=== PATIENT | female | born 1935 | race Caucasian/White ===

== ENCOUNTER 2018-01-26 23:54 | Emergency (ER) | payer OTHER ==
--- OUTSIDE RECORDS SUMMARY | 2018-01-26 23:56 | XMS REPORT | Clinical Summary ---
:1935 Author Organization [facility] [employer] Address [address] [place] [address] Care Team Providers Name Role Phone Landon Corbin MD Primary Care Provider Allergies Active Allergy Reactions Severity Noted Date Comments Adhesive Tape-Silicones 12/18/2016 Buprenorphine 12/18/2016 Codeine 12/18/2016 Meperidine 12/18/2016 Triamcinolone Acetonide 12/18/2016 Levofloxacin 12/18/2016 Penicillins 12/18/2016 Oxycodone-Aspirin 12/18/2016 Wasp Venom 12/18/2016 Medications Medication Sig Dispensed Refills Start Date End Date Status LYRICA 75 mg capsule every 12 0 11/16/2016 Active (twelve) hours as needed. pramipexole (MIRAPEX) 0.25 mg 0 11/16/2016 Active 0.25 MG tablet nightly. losartan (COZAAR) 50 MG 50 mg every 0 12/16/2016 Active tablet morning. primidone (MYSOLINE) Take 250 mg by 0 10/17/2016 Active 250 MG tablet mouth 2 (two) times a day. amitriptyline (ELAVIL) nightly. 0 11/16/2016 Active 50 MG tablet furosemide (LASIX) 40 40 mg every 0 10/04/2016 Active mg tablet morning. topiramate (TOPAMAX) nightly. 0 10/18/2016 Active 100 MG tablet dexlansoprazole Take 60 mg by 0 Active (DEXILANT) 60 mg mouth every capsule morning. fluticasone (FLONASE) 2 sprays by 0 11/16/2016 Active 50 mcg/actuation nasal Each Nare spray route daily. hyoscyamine sulfate Take 1 tablet 0 Active 0.125 mg by mouth 2 tablet,disintegrating (two) times a day. cholecalciferol, Take 2,000 0 Active vitamin D3, (VITAMIN Units by mouth D3) 2,000 unit capsule daily. capsule CALCIUM CARBONATE Take 600 mg by 0 Active (CALCIUM 600 ORAL) mouth daily. ginkgo biloba leaf Take 120 mg by 0 Active extract 120 mg capsule mouth. rizatriptan LAND SALES AGENT Take 10 mg by 0 Active (MAXALT-LAND SALES AGENT) 10 MG mouth once as disintegrating tablet needed for migraine. May repeat in 2 hours if unresolved. Do not exceed 30 mg in 24 hours. clopidogrel (PLAVIX) 75 Take 1 tablet 30 tablet 0 12/30/2016 01/29/2017 mg tablet (75 mg total) by mouth daily for 30 days. atorvastatin (LIPITOR) Take 1 tablet 30 tablet 0 12/30/2016 01/29/2017 40 MG tablet (40 mg total) by mouth daily for 30 days. Active Problems Problem Noted Date Carotid stenosis, left 12/28/2016 Family History Medical History Relation Name Comments Cancer Father Heart disease Father Lung disease Father Cancer Mother Lung disease Mother Cancer Son Lung disease Son Relation Name Status Comments Father Mother Son Social History Tobacco Use Types Packs/Day Years Used Date Former Smoker 0 Quit: 1991 Smokeless Tobacco: Never Used Comments: 2PPd until 1991 Alcohol Use Drinks/Week oz/Week Comments No Sex Assigned at Date Recorded Not on file Job Start Date Occupation Industry Not on file Not on file Not on file Travel History Travel Start Travel End No recent travel history available. 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 Device Shelf Model / Identifier Expiration Serial / Lot Date Clip Ligtng Weck Hemoclip Plus W/ Tape Ti Sm Strngpnt - [id number] Medical N/A : WECK CLOSURE [id number] / Implanted: 12/28/2016 (Quantity not on file) Clips for N/A SYSTEMS / Internal Use Clip Ligtng Weck Hemoclip Plus W/ Tape Ti Med - [id number] Medical N/A: TELEFLEX [id number] / Implanted: 12/28/2016 (Quantity not on file) Clips for N/A MEDICAL / Internal Use Kit Shunt Crtd Artery Rdopq Line 6in Strl [place] - [id number] Surgical N/A: COVIDIEN ALISSON 06/09/2019 [id number] / Implanted: 12/28/2016 (Quantity not on file) Implants; N/A HEALTHCARE / Expanders; [id number] Extenders; Surgical Wires Patch Vasclr Perph 0.8x8cm Vascu-Guard - [id number] Vascular N/A: GARCIA 06/18/2021 [id number] / Implanted: 12/28/2016 (Quantity not on file) Graft N/A BIOSCIENCE / [id number] Results Not on fileafter 01/25/2017 Insurance Payer Benefit Plan / Group Subscriber ID Type Phone Address [facility] xxxxxxxxx HMO (Home) [place] [address] Advance Directives Patient has advance care planning documents on file. For more information, please contact:[place] [address]
[2018-01-27] MEDS ORDERED: HYDROMORPHONE HCL 1 MG/ML INJ ONE (00:54)
[2018-01-27] MEDS ORDERED: ONDANSETRON 4 MG/2 ML VIAL ONE (00:54)
[2018-01-27 01:19] LABS: Absolute Lymphocytes (CBC) 0.9 K/uL (0.7-4.9); Absolute Monocytes 1.5 K/uL (0.1-1.3); Basophils % 0.5 % (0-1.3); Hematocrit 33.9 % (36.0-45.0); Lymphocytes % 12.3 % (15.3-44.8); MCH 30.2 pg (27.0-35.0); MPV 9.1 fL (7.6-11.3); Monocytes % 19.6 % (3.3-12.3); RBC Red Blood Cell Count 3.85 M/uL (3.86-4.86)
[2018-01-27 01:27] LABS: Protime INR 0.92
[2018-01-27 01:40] LABS: ALT/SGPT 23 U/L (12-78); AST/SGOT 32 U/L (15-37); Albumin 3.5 g/dL (3.4-5.0); Alkaline Phosphatase 94 U/L (45-117); BUN Blood Urea Nitrogen 27 mg/dL (7-18); Bicarbonate 27 mmol/L (21-32); Bilirubin Direct < 0.1 mg/dL (0-0.2); Bilirubin Total 0.3 mg/dL (0.2-1.0); Glucose Level 122 mg/dL (74-106); Lipase 167 U/L (73-393); Magnesium 2.5 mg/dL (1.8-2.4); NT PRO-BNP 70 pg/mL (<450); Potassium 3.3 mmol/L (3.5-5.1); Protein, Total 6.8 g/dL (6.4-8.2); Sodium Level 136 mmol/L (136-145); Troponin (Emerg Dept Use Only) < 0.02 ng/mL (0.0-0.045)
[2018-01-27] MEDS ORDERED: NA CHLORIDE 0.9% 1,000 ML ONE (02:08)
--- NOTE | 2018-01-27 02:32 | ER ---
Nurse's Notes [facility] Name: Mechelle Chapa Age: 82 yrs Sex: Female : 1935 Arrival Date: 01/26/2018 Time: 23:55 Bed 16 Private MD: Diagnosis: Fall due to bumping against object;Displaced fracture of lateral malleolus of left fibula;Obesity, unspecified Presentation: 01/27 00:06 Presenting complaint: EMS states: patient had a fall about 1 hour ago from standing kr2 position, witness by her , swelling and pain to both ankles. Denies hitting head or loss of consciousness. Transition of care: patient was not received from another setting of care. Onset of symptoms was January 26, 2018 at 23:00. Risk Assessment: Do you want to hurt yourself or someone else? Patient reports no desire to harm self or others. Initial Sepsis Screen: Does the patient meet any 2 criteria? No. Patient's initial sepsis screen is negative. Does the patient have a suspected source of infection? No. Patient's initial sepsis screen is negative. Care prior to arrival: Splint applied. 00:06 Method Of Arrival: EMS: [facility] kr2 00:06 Acuity: BA 3 kr2 Triage Assessment: 00:09 General: Appears in no apparent distress. uncomfortable, well groomed, well developed, kr2 well nourished, Behavior is calm, cooperative, appropriate for age. Pain: Complains of pain in left and right ankle Pain does not radiate. Pain currently is 10 out of 10 on a pain scale. Quality of pain is described as aching, tender, Pain began 1 hour ago. Is continuous, Alleviated by rest, Aggravated by weight bearing. 00:11 Neuro: Level of Consciousness is awake, alert, obeys commands, Oriented to person, kr2 place, time, situation, Appropriate for age. Cardiovascular: Capillary refill < 3 seconds in bilateral fingers Patient's skin is warm and dry. Rhythm is regular. Respiratory: Airway is patent Respiratory effort is even, unlabored, Respiratory pattern is regular, symmetrical. Derm: Skin is fragile, Skin is pink, warm \T\ dry. Bruising that is dark purple. Musculoskeletal: Circulation, motion, and sensation intact. Swelling present in left and right ankle. - Immunization history:: Adult Immunizations up to date. - Social history:: Smoking status: Patient/guardian denies using tobacco. - Ebola Screening: : No symptoms or risks identified at this time. - Family history:: not pertinent. Screenin:15 Abuse screen: Denies threats or abuse. Denies injuries from another. Nutritional kr2 screening: No deficits noted. Tuberculosis screening: No symptoms or risk factors identified. Fall Risk Fall in past 12 months (25 points). Assessment: 02:01 General: Appears in no apparent distress. uncomfortable, Behavior is calm, cooperative. mg2 Pain: Complains of pain in anterior aspect of right ankle and right ankle and left leg and right leg and anterior aspect of left ankle and left lateral ankle Pain does not radiate. Pain currently is 5 out of 10 on a pain scale. Quality of pain is described as aching, Pain began suddenly, 2 hours ago. Is intermittent, Alleviated by medications, Aggravated by increased activity, repositioning, weight bearing. Neuro: Level of Consciousness is awake, alert, obeys commands, Oriented to person, place, time, situation. Cardiovascular: Capillary refill < 3 seconds Patient's skin is warm and dry. Respiratory: Airway is patent Respiratory effort is even, unlabored, Respiratory pattern is regular, symmetrical. GI: No signs and/or symptoms were reported involving the gastrointestinal system. : No signs and/or symptoms were reported regarding the genitourinary system. EENT: No signs and/or symptoms were reported regarding the EENT system. Derm: Skin is intact, is healthy with good turgor, Skin is pink, warm \T\ dry. normal. Musculoskeletal: Circulation, motion, and sensation intact. Capillary refill < 3 seconds, Swelling present in anterior aspect of right ankle and right ankle and anterior aspect of left ankle and left lateral ankle. Injury Description: Bruise sustained to left knee. 03:00 Reassessment: Patient appears in no apparent distress at this time. Patient and/or jb4 family updated on plan of care and expected duration. Pain level reassessed. Patient is alert, oriented x 3, equal unlabored respirations, skin warm/dry/pink. 03:15 Reassessment: Waiting for urine sample, and for to arrive with a smaller car. jb4 04:00 Reassessment: Patient appears in no apparent distress at this time. Patient and/or jb4 family updated on plan of care and expected duration. Pain level reassessed. Patient is alert, oriented x 3, equal unlabored respirations, skin warm/dry/pink. Vital Signs: 00:10 BP 140 / 52; Pulse 94; Resp 18; Temp 98.7; Pulse Ox 96% on R/A; Weight 77.11 kg; Height kr2 5 ft. 5 in. (165.10 cm); Pain 10/10; 00:42 BP 125 / 60; Pulse 85; Resp 18; Pulse Ox 100% ; Pain 8/10; mg2 03:15 BP 130 / 50; Pulse 97; Resp 18; Pulse Ox 97% on R/A; jb4 00:10 Body Mass Index 28.29 (77.11 kg, 165.10 cm) kr2 ED Course: 01/26 23:55 Patient arrived in ED. al2 23:57 Stefano Ward MD is Attending Physician. she 01/27 00:06 Harmony Dey, RN is Primary Nurse. kr2 00:09 Triage completed. kr2 00:15 Arm band placed on right wrist. kr2 00:16 Patient has correct armband on for positive identification. Placed in gown. Bed in low kr2 position. Call light in reach. Side rails up X2. Adult w/ patient. Pulse ox on. NIBP on. Door closed. Warm blanket given. Pillow given. Head of bed elevated. 02:03 No provider procedures requiring assistance completed. Inserted saline lock: 22 gauge mg2 in left forearm, using aseptic technique. Blood collected. 02:12 X-ray completed. Patient tolerated procedure well. kp1 02:20 XRAY Chest (1 view) In Process Unspecified. EDMS 02:20 Tib Fib Left XRAY In Process Unspecified. EDMS 02:20 Tib Fib Right XRAY In Process Unspecified. EDMS 02:20 Ankle Right 3 View XRAY In Process Unspecified. EDMS 02:20 Ankle Left 3 View XRAY In Process Unspecified. EDMS 02:33 Momo Chowdary MD is Referral Physician. she 02:48 Orthoglass splint: Posterior short lleg splint applied on left leg. oe 04:00 IV discontinued, intact, bleeding controlled. jb4 Administered Medications: 01:19 CANCELLED (Duplicate Order): Zofran 4 mg IVP once; over 2 minutes mg2 01:20 CANCELLED (Duplicate Order): Dilaudid 0.5 mg IVP once mg2 01:21 Drug: Dilaudid 0.5 mg Route: IVP; Site: left forearm; mg2 02:20 Follow up: Response: No adverse reaction; Pain is decreased mg2 01:21 Drug: Zofran 4 mg Route: IVP; Site: left forearm; mg2 02:18 Follow up: Response: No adverse reaction; Pain is decreased mg2 02:22 Drug: NS 0.9% 500 ml Route: IV; Rate: bolus; Site: left forearm; mg2 02:48 Follow up: Response: No adverse reaction; IV Status: Completed infusion jb4 02:48 Drug: NS 0.9% 1000 ml Route: IV; Rate: 125 ml/hr; Site: left hand; jb4 03:50 Follow up: Response: No adverse reaction; IV Status: Completed infusion jb4 Outcome: 02:31 Discharge ordered by . she 04:07 Discharged to home via wheelchair, with family. jbLeticia 04:07 Condition: stable 04:07 Discharge instructions given to patient, family, Instructed on discharge instructions, follow up and referral plans. medication usage, Demonstrated understanding of instructions, follow-up care, medications, Prescriptions given X 1. 04:10 Patient left the ED. jb4 Signatures: Dispatcher [employer] EDMS Stefano Ward MD MD cha Bryson, James, RN RN jb4 Gabriel Matthews Kathy kp1 Harmony Dey RN RN kr2 Lilliana Bang Michele, RN RN mg2 Corrections: (The following items were deleted from the chart) 04:08 03:15 IV discontinued, intact, bleeding controlled, jb4 jb4
--- NOTE | 2018-01-27 02:32 | EDPHYS ---
Physician Documentation [facility] Name: Mechelle Chapa Age: 82 yrs Sex: Female : 1935 Arrival Date: 01/26/2018 Time: 23:55 Bed 16 Private MD: ED Physician Stefano Ward HPI: 01/27 00:48 This 82 yrs old Female presents to ER via EMS with complaints of Fall Injury. she 00:48 Details of fall: The patient fell from a height, off furniture, approximately 2 feet. she Onset: The symptoms/episode began/occurred just prior to arrival. Associated injuries: The patient sustained right leg, left lateral ankle and anterior aspect of left ankle, decreased range of motion, painful injury. - Immunization history:: Adult Immunizations up to date. - Social history:: Smoking status: Patient/guardian denies using tobacco. - Ebola Screening: : No symptoms or risks identified at this time. - Family history:: not pertinent. ROS: 00:48 Constitutional: Negative for fever, chills, and weight loss, Eyes: Negative for injury, she pain, redness, and discharge, ENT: Negative for injury, pain, and discharge, Neck: Negative for injury, pain, and swelling, Cardiovascular: Negative for chest pain, palpitations, and edema, Respiratory: Negative for shortness of breath, cough, wheezing, and pleuritic chest pain, Abdomen/GI: Negative for abdominal pain, nausea, vomiting, diarrhea, and constipation, Back: Negative for injury and pain, : Negative for injury, bleeding, discharge, and swelling, Skin: Negative for injury, rash, and discoloration, Neuro: Negative for headache, weakness, numbness, tingling, and seizure, Psych: Negative for depression, anxiety, suicide ideation, homicidal ideation, and hallucinations, Allergy/Immunology: Negative for hives, rash, and allergies, Endocrine: Negative for neck swelling, polydipsia, polyuria, polyphagia, and marked weight changes, Hematologic/Lymphatic: Negative for swollen nodes, abnormal bleeding, and unusual bruising. 00:48 MS/extremity: Positive for decreased range of motion, deformity, pain, warmth, of the right ankle, anterior aspect of right ankle and left leg. Exam: 00:48 Constitutional: This is a well developed, well nourished patient who is awake, alert, she and in no acute distress. Head/Face: Normocephalic, atraumatic. Eyes: Pupils equal round and reactive to light, extra-ocular motions intact. Lids and lashes normal. Conjunctiva and sclera are non-icteric and not injected. Cornea within normal limits. Periorbital areas with no swelling, redness, or edema. ENT: Nares patent. No nasal discharge, no septal abnormalities noted. Tympanic membranes are normal and external auditory canals are clear. Oropharynx with no redness, swelling, or masses, exudates, or evidence of obstruction, uvula midline. Mucous membranes moist. Neck: Trachea midline, no thyromegaly or masses palpated, and no cervical lymphadenopathy. Supple, full range of motion without nuchal rigidity, or vertebral point tenderness. No Meningismus. Chest/axilla: Normal chest wall appearance and motion. Nontender with no deformity. No lesions are appreciated. Cardiovascular: Regular rate and rhythm with a normal S1 and S2. No gallops, murmurs, or rubs. Normal PMI, no JVD. No pulse deficits. Respiratory: Lungs have equal breath sounds bilaterally, clear to auscultation and percussion. No rales, rhonchi or wheezes noted. No increased work of breathing, no retractions or nasal flaring. Abdomen/GI: Soft, non-tender, with normal bowel sounds. No distension or tympany. No guarding or rebound. No evidence of tenderness throughout. Back: No spinal tenderness. No costovertebral tenderness. Full range of motion. Female : Normal external genitalia. Skin: Warm, dry with normal turgor. Normal color with no rashes, no lesions, and no evidence of cellulitis. Neuro: Awake and alert, GCS 15, oriented to person, place, time, and situation. Cranial nerves II-XII grossly intact. Motor strength 5/5 in all extremities. Sensory grossly intact. Cerebellar exam normal. Normal gait. Psych: Awake, alert, with orientation to person, place and time. Behavior, mood, and affect are within normal limits. 00:48 Musculoskeletal/extremity: ROM: limited active range of motion, limited passive range of motion, Circulation is intact in all extremities. Sensation intact. Compartment Syndrome exam of affected extremity: is normal. DVT Exam: negative Homans' sign noted on exam, no appreciated bluish discoloration, no erythema, no increased warmth, pain, swelling, tenderness. Vital Signs: 00:10 BP 140 / 52; Pulse 94; Resp 18; Temp 98.7; Pulse Ox 96% on R/A; Weight 77.11 kg; Height kr2 5 ft. 5 in. (165.10 cm); Pain 10/10; 00:42 BP 125 / 60; Pulse 85; Resp 18; Pulse Ox 100% ; Pain 8/10; mg2 03:15 BP 130 / 50; Pulse 97; Resp 18; Pulse Ox 97% on R/A; jb4 00:10 Body Mass Index 28.29 (77.11 kg, 165.10 cm) kr2 MDM: 01/26 23:57 Patient medically screened. [facility] 01/27 03:48 Data reviewed: vital signs, nurses notes, lab test result(s), EKG, radiologic studies, hse plain films. 01/27 00:47 Order name: Basic Metabolic Panel; Complete Time: 02:27 [facility] 01/27 00:47 Order name: CBC with Diff; Complete Time: 02:27 [facility] 01/27 00:47 Order name: LFT's; Complete Time: 02:27 [facility] 01/27 00:47 Order name: Magnesium; Complete Time: 02:27 [facility] 01/27 00:47 Order name: NT PRO-BNP; Complete Time: 02:27 [facility] 01/27 00:47 Order name: PT-INR; Complete Time: 02:27 [facility] 01/27 00:47 Order name: Troponin (emerg Dept Use Only); Complete Time: 02:27 [facility] 01/27 00:46 Order name: EKG; Complete Time: 00:47 [facility] 01/27 00:47 Order name: XRAY Chest (1 view) [facility] 01/27 00:47 Order name: Tib Fib Left XRAY [facility] 01/27 00:47 Order name: Tib Fib Right XRAY [facility] 01/27 00:47 Order name: Ankle Right 3 View XRAY [facility] 01/27 00:47 Order name: Ankle Left 3 View XRAY [facility] 01/27 00:47 Order name: Urine Culture [facility] 01/27 00:47 Order name: Lipase; Complete Time: 02:27 [facility] 01/27 03:56 Order name: Urine Dipstick--Ancillary (enter results) [facility] 01/27 00:47 Order name: Cardiac monitoring; Complete Time: 00:52 [facility] 01/27 00:47 Order name: EKG - Nurse/Tech; Complete Time: 01:20 [facility] 01/27 00:47 Order name: IV Saline Lock; Complete Time: 00:52 [facility] 01/27 00:47 Order name: Labs collected and sent; Complete Time: 00:52 [facility] 01/27 00:47 Order name: O2 Per Protocol; Complete Time: 00:52 [facility] 01/27 00:47 Order name: O2 Sat Monitoring; Complete Time: 00:52 [facility] 01/27 00:47 Order name: Urine Dipstick-Ancillary (obtain specimen); Complete Time: 03:52 [facility] 01/27 02:25 Order name: Splint - Ankle: Posterior: left; Complete Time: 02:44 [facility] 01/27 03:48 Order name: PO challenge: juice; Complete Time: 04:04 [facility] Administered Medications: 01:19 CANCELLED (Duplicate Order): Zofran 4 mg IVP once; over 2 minutes mg2 01:20 CANCELLED (Duplicate Order): Dilaudid 0.5 mg IVP once mg2 01:21 Drug: Dilaudid 0.5 mg Route: IVP; Site: left forearm; mg2 02:20 Follow up: Response: No adverse reaction; Pain is decreased mg2 01:21 Drug: Zofran 4 mg Route: IVP; Site: left forearm; mg2 02:18 Follow up: Response: No adverse reaction; Pain is decreased mg2 02:22 Drug: NS 0.9% 500 ml Route: IV; Rate: bolus; Site: left forearm; mg2 02:48 Follow up: Response: No adverse reaction; IV Status: Completed infusion jb4 02:48 Drug: NS 0.9% 1000 ml Route: IV; Rate: 125 ml/hr; Site: left hand; jb4 03:50 Follow up: Response: No adverse reaction; IV Status: Completed infusion jb4 Disposition: 01/27/18 02:31 Discharged to Home. Impression: Fall due to bumping against object, Displaced fracture of lateral malleolus of left fibula, Obesity, unspecified. - Condition is Stable. - Discharge Instructions: Fibular Ankle Fracture Treated With or Without Immobilization, Adult, Undisplaced Fibular Ankle Fracture Treated With Immobilization, Adult, Fall Prevention in the Home, Obesity, Adult, Obesity, Adult, [id number]. - Prescriptions for Tylenol 325 mg Oral Tablet - take 2 tablet by ORAL route every 6 hours as needed; 1 bottle. - Medication Reconciliation Form, Thank You Letter, Antibiotic Education, Prescription Opioid Use form. - Follow up: Private Physician; When: 2 - 3 days; Reason: Recheck today's complaints, Continuance of care, Re-evaluation by your physician. Follow up: Momo Chowdary MD; When: 2 - 3 days; Reason: Recheck today's complaints, Re-evaluation by your physician. - Problem is new. - Symptoms have improved. Signatures: Dispatcher [employer] EDLA Stefano Ward MD MD cha Bryson, James, RN RN jb4 Harmony Dey, RN RN kr2 Refugio Concepcion RN RN mg2 Corrections: (The following items were deleted from the chart) 01:19 00:46 Zofran 4 mg IVP once; over 2 minutes ordered. mg2 mg2 01:20 00:46 Dilaudid 0.5 mg IVP once ordered. mg2 mg2 00:47 CBC+H.LAB.BRZ ordered. EDLA EDLA 00:47 PROTIME (+INR)+COAG.LAB.BRZ ordered. [facility] EDLA : 00:47 BASIC METABOLIC PANEL+C.LAB.BRZ ordered. [facility] EDLA : 00:47 HEPATIC FUNCTION+C.LAB.BRZ ordered. [facility] EDLA : 00:47 MAGNESIUM+C.LAB.BRZ ordered. EDLA EDLA : 00:47 PROBNP+C.LAB.BRZ ordered. [facility] EDLA 00:47 TROPONIN (EMERG DEPT USE ONLY)+C.LAB.BRZ ordered. [facility] EDLA :45 00:46 Cardiac monitoring ordered. mg2 mg2 45 00:46 EKG - Nurse/Tech ordered. mg2 mg2 00:46 IV Saline Lock ordered. mg2 mg2 00:46 Labs collected and sent ordered. mg2 mg2 00:46 Oxygen Per Protocol ordered. mg2 mg2 00:46 O2 Sat Monitoring ordered. mg2 mg2 02:19 00:47 Chest Single View+RAD.RAD.BRZ ordered. [facility] EDLA 02:33 02:31 01/27/2018 02:31 Discharged to Home. Impression: Fall due to bumping against she object; Displaced fracture of lateral malleolus of left fibula; Obesity, unspecified. Condition is Stable. Forms are Medication Reconciliation Form, Thank You Letter, Antibiotic Education, Prescription Opioid Use. Follow up: Private Physician; When: 2 - 3 days; Reason: Recheck today's complaints, Continuance of care, Re-evaluation by your physician. Problem is new. Symptoms have improved. [facility] 04:10 02:33 01/27/2018 02:31 Discharged to Home. Impression: Fall due to bumping against jb4 object; Displaced fracture of lateral malleolus of left fibula; Obesity, unspecified. Condition is Stable. Discharge Instructions: Fibular Ankle Fracture Treated With or Without Immobilization, Adult, Undisplaced Fibular Ankle Fracture Treated With Immobilization, Adult, Fall Prevention in the Home, Obesity, Adult, Obesity, Adult, [id number]. Forms are Medication Reconciliation Form, Thank You Letter, Antibiotic Education, Prescription Opioid Use. Follow up: Private Physician; When: 2 - 3 days; Reason: Recheck today's complaints, Continuance of care, Re-evaluation by your physician. Follow up: Mmoo Chowdary; When: 2 - 3 days; Reason: Recheck today's complaints, Re-evaluation by your physician. Problem is new. Symptoms have improved. [facility]
[2018-01-27 04:51] LABS: Urine Blood TRACE (NEG); Urine Glucose NEGATIVE (NEG); Urine Protein NEGATIVE (NEG)
--- NOTE | 2018-01-27 07:03 | EKG ---
Test Date: 2018-01-27 Test Time: 01:05:30 Machine Load Clerk: [place] MEASUREMENT RESULTS: Intervals: Rate: 86 AK: 176 QRSD: 160 QT: 452 QTc: 540 [place]: P: 58 AK: 176 QRS: -24 T: 126 INTERPRETIVE STATEMENTS: Normal sinus rhythm Left bundle branch block Abnormal ECG Compared to ECG 12/10/2016 13:43:44 No significant changes Electronically Signed On 01-27-18 07:02:39 [place] by Radhames Canela
--- NOTE | 2018-01-27 08:56 | RAD REPORT ---
EXAM DESCRIPTION: RAD - Tib Fib Right - 01/27/2018 2:19 am CLINICAL HISTORY: PAIN Fall COMPARISON: None FINDINGS: Right tibia/ fibula and right ankle - multiple projections are submitted Moderate soft swelling is seen about the ankle. No acute fracture or dislocation is seen.
--- NOTE | 2018-01-27 09:09 | RAD REPORT ---
EXAM DESCRIPTION: RAD - Chest Single View - 01/27/2018 2:19 am CLINICAL HISTORY: COUGH Chest pain. COMPARISON: CHEST SINGLE VIEW dated 06/30/2012; CHEST PA AND LAT 2 VIEW dated 06/19/2011; CHEST PA AND LAT 2 VIEW dated 06/19/2009; CHEST SINGLE VIEW dated 11/29/2008 FINDINGS: Portable technique limits examination quality. The lungs are grossly clear. The heart is normal in size. No displaced fractures.Mild dextroscoliosis of the thoracic spine is present. IMPRESSION: No acute intrathoracic process suspected.
--- NOTE | 2018-01-27 09:12 | RAD REPORT ---
EXAM DESCRIPTION: RAD - Tib Fib Left - 01/27/2018 2:19 am CLINICAL HISTORY: PAIN History of fall COMPARISON: None FINDINGS: Left tibia/ fibula and left ankle -multiple projections are submitted Prominent soft tissue swelling is seen about the ankle. An oblique fracture of the distal fibula is s een. No dislocation evident.
--- NOTE | 2018-01-27 09:26 | RAD REPORT ---
EXAM DESCRIPTION: RAD - Ankle Left 3 View - 01/27/2018 2:19 am CLINICAL HISTORY: PAIN History of fall COMPARISON: None FINDINGS: Left tibia/ fibula and left ankle -multiple projections are submitted Prominent soft tissue swelling is seen about the ankle. An oblique fracture of the distal fibula is s een. No dislocation evident.
--- NOTE | 2018-01-27 09:27 | RAD REPORT ---
EXAM DESCRIPTION: RAD - Ankle Right 3 View - 01/27/2018 2:19 am CLINICAL HISTORY: PAIN CLINICAL HISTORY: PAIN Fall COMPARISON: None FINDINGS: Right tibia/ fibula and right ankle - multiple projections are submitted Moderate soft swelling is seen about the ankle. No acute fracture or dislocation is seen.
== END 2018-01-27 04:10 | disposition home or self-care (01) ==
LOC: ER 23:54
PROC: 2W3RX1Z Immobilization of Left Lower Leg using Splint (ICD-10-PCS; principal; 2018-01-27)
DX: S82.62XA Displaced fracture of lateral malleolus of left fibula, initial encounter for closed fracture (principal); W18.00XA Striking against unspecified object with subsequent fall, initial encounter; E66.9 Obesity, unspecified; Z68.28 Body mass index [BMI] 28.0-28.9, adult; I44.7 Left bundle-branch block, unspecified; R94.31 Abnormal electrocardiogram [ECG] [EKG]
CPT/HCPCS: 29515; 36415; 71045; 73590 ×2; 73610 ×2; 80048; 80076; 81003; 83690; 83735; 83880; 84484; 85025; 85610; 87086; 87088; 93005; 96361; 96374; 96375; 99284; J1170; J2405; J7030

== ENCOUNTER 2018-10-30 06:07 | Day surgery (SDC) | payer OTHER ==
[2018-10-29 14:14] LABS: Absolute Lymphocytes (CBC) 1.5 K/uL (0.7-4.9); Basophils % 0.7 % (0-1.3); Hematocrit 43.4 % (36.0-45.0); Lymphocytes % 33.6 % (15.3-44.8); MPV 9.3 fL (7.6-11.3); RBC Red Blood Cell Count 4.85 M/uL (3.86-4.86)
[2018-10-29 14:28] LABS: Potassium 3.9 mmol/L (3.5-5.1)
[2018-10-29 14:45] LABS: Protime INR 0.99
[2018-10-29 14:49] LABS: Blood Morphology Comment NOT SEEN (NOT SEEN); Platelet Estimate ADEQ; Urine White Blood Cell Casts OK
--- OUTSIDE RECORDS SUMMARY | 2018-10-30 06:08 | XMS REPORT | Clinical Summary ---
:1935 Author Organization [facility] Address [address] [place] [address] Care Team Providers Name Role Phone Landon [...] 0 12/16/2016 Active tablet morning. primidone (MYSOLINE) 250 Take 250 mg by 0 10/17/2016 Active MG tablet mouth 2 (two) times a day. amitriptyline (ELAVIL) 50 nightly. 0 11/16/2016 Active MG tablet furosemide (LASIX) 40 mg 40 mg every 0 10/04/2016 Active tablet morning. topiramate (TOPAMAX) 100 nightly. 0 10/18/2016 Active MG tablet dexlansoprazole Take 60 mg by 0 Active (DEXILANT) 60 mg capsule mouth every morning. fluticasone (FLONASE) 50 2 sprays by 0 11/16/2016 Active mcg/actuation nasal spray Each Nare route daily. hyoscyamine sulfate 0.125 Take 1 tablet 0 Active mg tablet,disintegrating by mouth 2 (two) times a day. cholecalciferol, vitamin Take 2,000 0 Active D3, (VITAMIN D3) 2,000 Units by mouth unit capsule capsule daily. CALCIUM CARBONATE Take 600 mg by 0 Active (CALCIUM 600 ORAL) mouth daily. ginkgo biloba leaf Take 120 mg by 0 Active extract 120 mg capsule mouth. rizatriptan RN INTEGRITY Take 10 mg by 0 Active (MAXALT-RN INTEGRITY) 10 MG mouth once as disintegrating tablet needed for migraine. May repeat in 2 hours if unresolved. Do not exceed 30 mg in 24 hours. Active Problems Problem Noted Date Carotid stenosis, [...] Health Maintenance Due Date Last Done Comments SHINGLES VACCINES (#1) 06/30/1987 65+ PNEUMOCOCCAL VACCINE (1 of 2 - PCV13) 2002 INFLUENZA VACCINE 10/09/2018 Implants Implanted Type Area Drawer In Hand Device Shelf Model / Identifier Expiration Serial / Lot Date Clip Ligtng Weck Hemoclip Plus W/ Tape Ti Sm Strngpnt - [id number] Medical N/A : WECK CLOSURE [id number] / Implanted: 12/28/2016 at [facility] (Quantity not on file) Clips for N/A SYSTEMS / Internal Use Clip Ligtng Weck Hemoclip Plus W/ Tape Ti Med - [id number] Medical N/A: TELEFLEX [id number] / Implanted: 12/28/2016 at [facility] (Quantity not on file) Clips for N/A MEDICAL / Internal Use Kit Shunt Crtd Artery Rdopq Line 6in Strl [place] - [id number] Surgical N/A: COVIDISINGH ALISSON 06/09/2019 [id number] / Implanted: 12/28/2016 at [facility] (Quantity not on file) Implants; N/A HEALTHCARE / Expanders; [id number] Extenders; Surgical Wires Patch Vasclr Perph 0.8x8cm Vascu-Guard - [id number] Vascular N/A: GARCIA 06/18/2021 [id number] / Implanted: 12/28/2016 at [facility] (Quantity not on file) Graft N/A BIOSCIENCE / [id number] Results Not on fileafter 10/29/2017 Advance Directives For more information, please contact: [phone] Type Date Recorded Patient Veterinary Virus Serum Inspector Explanation Advance Directives, Living Will and Medical Power of Test Kitchen Home Economist Advance Directives, 01/01/2017 9:47 AM Living Will and Medical Power of Test Kitchen Home Economist
--- OUTSIDE RECORDS SUMMARY | 2018-10-30 06:09 | XMS REPORT ---
:1935 [facility] Address [address] [place] [address] Dr. Ellington [address] [place] [id number] Care Team Providers Name Role Phone Unavailable Unavailable Unavailable Problems This patient has no known problems. Allergies, Adverse Reactions, Alerts This patient has no known allergies or adverse reactions. Medications This patient has no known medications.
[2018-10-30] MEDS ORDERED: HEPA 1000U/500MLS 1,000 UNIT/500 ML BAG IV ONE (06:40)
[2018-10-30] MEDS ORDERED: LIDOCAINE 1% 20 ML MDV ONE (06:41)
[2018-10-30] MEDS ORDERED: NA CHLORIDE 0.9% 500 ML ONE (06:49)
[2018-10-30] MEDS ORDERED: NA CHLORIDE 0.9% 0 ML ONE (07:36)
[2018-10-30] MEDS ORDERED: ATROPINE SULF 1 MG/10 ML SYR IV ONE (07:36)
[2018-10-30] MEDS ORDERED: MIDAZOLAM HCL 2 MG/2 ML INJ ONE (07:36)
[2018-10-30] MEDS ORDERED: FENTANYL CITR 100 MCG/2 ML ONE ×2 (07:36→09:35)
[2018-10-30] MEDS ORDERED: FENTANYL CITR 100 MCG/2 ML IV PRN (09:34)
--- NOTE | 2018-10-31 03:38 | OP ---
Surgeon: Edenilson Pradhan MD Exercise Equipment Specialist: Suzanne Lovell. Procedure: Left heart catheterization, selective coronary arteriogram. Indication: Abnormal stress test, abnormal echocardiogram, and shortness of breath. Description Of Procedure: Ms. Chapa was brought to the labor economics professor as an outpatient. She was prepped an d draped in the routine sterile fashion. She was given Versed and fentanyl for sedation. 6-Bulgarian s salomon was introduced in the right common femoral artery. Aye catheters were used to do the coron isela arteriography. She had a normal right coronary artery, normal circumflex with some plaquing thro ughout. The LAD showed about 40% to 50% stenosis in the mid LAD. There were no complications. Blood Loss: 5 cc. Anesthesia: Total conscious sedation was 30 minutes. Final Diagnosis: Moderate coronary artery disease. Plan: Medical therapy specific to add a statin at high dose considering she has had a carotid endart erectomy in the past. Patient will go home today and will see me in the office in 2 weeks. I will start her statin then. If her symptoms continue, I would consider stenting the 50% LAD. VANESA/FATEMEH Voice ID: [id number] Report ID: [id number]
== END 2018-10-30 11:20 | disposition home health service (06) ==
LOC: CCL 06:07
DX: I25.10 Atherosclerotic heart disease of native coronary artery without angina pectoris (principal); I35.9 Nonrheumatic aortic valve disorder, unspecified; I65.22 Occlusion and stenosis of left carotid artery; I10 Essential (primary) hypertension; G62.9 Polyneuropathy, unspecified; Z88.6 Allergy status to analgesic agent; Z91.048 Other nonmedicinal substance allergy status; Z87.891 Personal history of nicotine dependence
CPT/HCPCS: 85025; 80048; 36415; 85610; 85730; 93454; C1893; C1760; J2250; J3010 ×2; J0583

== ENCOUNTER 2019-04-06 17:12 | Emergency (ER) | payer OTHER ==
--- OUTSIDE RECORDS SUMMARY | 2019-04-06 17:14 | XMS REPORT ---
:1935 [facility] Address [address] [place] [address] Dr. Ell[address] [place] [id number] Care Team Providers Name Role Phone Unavailable Unavailable Unavailable Problems This patient has no known problems. Allergies, Adverse Reactions, Alerts This patient has no known allergies or adverse reactions. Medications This patient has no known medications.
[2019-04-06 18:08] LABS: Absolute Lymphocytes (CBC) 2.3 K/uL (0.7-4.9); Hematocrit 43.4 % (36.0-45.0); Lymphocytes % 40.7 % (15.3-44.8); MPV 9.8 fL (7.6-11.3)
[2019-04-06 18:09] LABS: Protime INR 1.11
--- NOTE | 2019-04-06 18:16 | RAD REPORT ---
EXAM DESCRIPTION: RAD - Chest Single View - 04/06/2019 5:57 pm CLINICAL HISTORY: CHEST PAIN Chest pain. COMPARISON: Chest Pa And Lat (2 Views) dated 06/11/2018; Chest Single View dated 01/27/2018; CHEST SIN GLE VIEW dated 06/30/2012; CHEST PA AND LAT 2 VIEW dated 06/19/2011 FINDINGS: Portable technique limits examination quality. The lungs are mildly emphysematous. The heart is normal in size. No displaced fractures. IMPRESSION: Mild COPD.
[2019-04-06 18:30] LABS: ALT/SGPT 23 U/L (12-78); AST/SGOT 23 U/L (15-37); Albumin 3.8 g/dL (3.4-5.0); Alkaline Phosphatase 68 U/L (45-117); BUN Blood Urea Nitrogen 9 mg/dL (7-18); Bicarbonate 28 mmol/L (21-32); Bilirubin Direct 0.1 mg/dL (0-0.2); Bilirubin Total 0.3 mg/dL (0.2-1.0); Glucose Level 151 mg/dL (74-106); Magnesium 2.1 mg/dL (1.8-2.4); NT PRO-BNP 145 pg/mL (<450); Potassium 3.3 mmol/L (3.5-5.1); Sodium Level 142 mmol/L (136-145); Troponin (Emerg Dept Use Only) < 0.02 ng/mL (0.0-0.045)
[2019-04-06] MEDS ORDERED: LEVALBUTEROL 1.25 MG/3 ML NEB ONE (19:49)
--- NOTE | 2019-04-06 20:40 | EDPHYS ---
Physician Documentation [facility] Name: Mechelle Chapa Age: 83 yrs Sex: Female : 1935 Arrival Date: 04/06/2019 Time: 17:17 Bed 26 Private MD: ED Physician Stefano Ward HPI: 04/06 18:19 This 83 yrs old Female presents to ER via EMS with complaints of Chest pain. pm1 18:19 The patient or guardian reports chest pain that is located primarily in the mid-sternal pm1 area. Onset: today, at 16:00. The pain does not radiate. Associated signs and symptoms: Pertinent positives: shortness of breath, generalized weakness, Pertinent negatives: cough, nausea, vomiting. The chest pain is described as sharp. Duration: The patient or guardian reports a single episode, that is still ongoing, but improving. Modifying factors: The symptoms are alleviated by nothing. the symptoms are aggravated by nothing. The patient has not recently seen a physician. Historical: - Allergies: 17:52 PENICILLINS; mg2 17:52 Demerol; mg2 17:52 Percodan; mg2 17:52 Codeine; mg2 17:52 Hydrocodone-Acetaminophen; mg2 17:52 Levaquin; mg2 17:52 sansert; mg2 17:52 Kenalog; mg2 17:52 Orabase (benzocaine); mg2 17:52 red wasp venom; mg2 17:52 gnats; mg2 17:52 Adhesives; mg2 17:52 sutritex; mg2 - PMHx: 17:52 heart blockage; mg2 - PSHx: 17:52 Appendectomy; Tonsillectomy; hysterectomy; fractured right hip; hammer toe sx; mg2 bilateral mastectomy with implants; - Immunization history:: Flu vaccine is up to date. - Coronavirus screen:: The patient has NOT traveled to [place], [place], or [place] in the past 14 days. Proceed with normal triage process as indicated. - Social history:: Smoking status: unknown. - Ebola Screening: : No symptoms or risks identified at this time. ROS: 18:19 Constitutional: Negative for fever, chills, and weight loss, Eyes: Negative for injury, pm1 pain, redness, and discharge, ENT: Negative for injury, pain, and discharge, Neck: Negative for injury, pain, and swelling, Abdomen/GI: Negative for abdominal pain, nausea, vomiting, diarrhea, and constipation, Back: Negative for injury and pain, : Negative for injury, bleeding, discharge, and swelling, Skin: Negative for injury, rash, and discoloration, Neuro: Negative for headache, weakness, numbness, tingling, and seizure. 18:19 Cardiovascular: Positive for chest pain, Negative for palpitations. 18:19 Respiratory: Positive for shortness of breath. 18:19 MS/extremity: Positive for chronic right knee pain. Exam: 18:19 Constitutional: This is a well developed, well nourished patient who is awake, alert, pm1 and in no acute distress. Head/Face: Normocephalic, atraumatic. ENT: Nares patent. No nasal discharge, no septal abnormalities noted. Tympanic membranes are normal and external auditory canals are clear. Oropharynx with no redness, swelling, or masses, exudates, or evidence of obstruction, uvula midline. Mucous membranes moist. Neck: Trachea midline, no thyromegaly or masses palpated, and no cervical lymphadenopathy. Supple, full range of motion without nuchal rigidity, or vertebral point tenderness. No Meningismus. Chest/axilla: Normal chest wall appearance and motion. Nontender with no deformity. No lesions are appreciated. Cardiovascular: Regular rate and rhythm with a normal S1 and S2. No gallops, murmurs, or rubs. Normal PMI, no JVD. No pulse deficits. Respiratory: Lungs have equal breath sounds bilaterally, clear to auscultation and percussion. No rales, rhonchi or wheezes noted. No increased work of breathing, no retractions or nasal flaring. Abdomen/GI: Soft, non-tender, with normal bowel sounds. No distension or tympany. No guarding or rebound. No evidence of tenderness throughout. Back: No spinal tenderness. No costovertebral tenderness. Full range of motion. Skin: Warm, dry with normal turgor. Normal color with no rashes, no lesions, and no evidence of cellulitis. MS/ Extremity: Pulses equal, no cyanosis. Neurovascular intact. Full, normal range of motion. 18:19 Neuro: Orientation: is normal, Motor: is normal, moves all fours. 19:35 ECG was reviewed by the Attending Physician. pm1 Vital Signs: 17:22 BP 122 / 62; Pulse 94; Resp 18; Temp 98.3; Pulse Ox 98% on R/A; mg2 19:30 BP 135 / 80; Pulse 90; Resp 17; Temp 98; Pulse Ox 98% on 3 lpm NC; mg2 20:28 BP 144 / 44; Pulse 90; Resp 18; Pulse Ox 100% on R/A; mg2 21:05 BP 150 / 62; Pulse 82; Resp 18; Temp 98; Pulse Ox 97% on R/A; mg2 MDM: 17:29 Patient medically screened. pm1 20:35 Data reviewed: vital signs. Data interpreted: Pulse oximetry: on room air is 100 %. pm1 Interpretation: normal. 20:35 Refusal of service: The patient/guardian displays adequate decision making capability pm1 and despite a detailed discussion of alternatives, benefits, risks, and consequences refuses: Repeat troponin and admission. Wants to go home. Does not have any chest pain or shortness of breath. Patient with normal room air saturation post breathing treatment. Will treat patient as COPD exacerbation. 20:40 ED course: Patient's allergy to steroids is thrush and she has taken them in the past pm1 for COPD. Will cover with azithromycin. Patient uses inhaler at home. 04/06 17:18 Order name: Basic Metabolic Panel; Complete Time: 18:37 mg2 04/06 17:18 Order name: CBC with Diff mg2 04/06 17:18 Order name: LFT's; Complete Time: 18:37 mg2 04/06 17:18 Order name: Magnesium; Complete Time: 18:37 mg2 04/06 17:18 Order name: NT PRO-BNP; Complete Time: 18:37 mg2 04/06 17:18 Order name: PT-INR; Complete Time: 18:37 mg2 04/06 17:18 Order name: Troponin (emerg Dept Use Only); Complete Time: 18:37 mg2 04/06 17:18 Order name: XRAY Chest (1 view); Complete Time: 18:37 mg2 04/06 17:18 Order name: EKG; Complete Time: 17:20 mg2 04/06 17:18 Order name: Cardiac monitoring; Complete Time: 17:55 mg2 04/06 17:18 Order name: EKG - Nurse/Tech; Complete Time: 17:55 mg2 04/06 17:18 Order name: IV Saline Lock; Complete Time: 17:55 mg2 04/06 17:18 Order name: Labs collected and sent; Complete Time: 17:55 mg2 04/06 17:18 Order name: O2 Per Protocol; Complete Time: 17:55 mg2 04/06 17:18 Order name: O2 Sat Monitoring; Complete Time: 17:55 mg2 EC:35 Rate is 90 beats/min. Rhythm is regular. No Q waves. T waves are Normal. No ST changes pm1 noted. Clinical impression: Old left bundle branch block. 01/27/2019 with LBB. Administered Medications: 19:47 Drug: Xopenex 1.25 mg Route: Inhalation; mg2 21:10 Follow up: Response: No adverse reaction mg2 20:50 Drug: AZITHromycin 500 mg Route: PO; mg2 21:10 Follow up: Response: No adverse reaction; Medication administered at discharge. mg2 20:50 Drug: predniSONE 60 mg Route: PO; mg2 21:10 Follow up: Response: No adverse reaction; Medication administered at discharge. mg2 Disposition: 04/07 09:02 Co-signature as Attending Physician, Stefano Ward MD I agree with the assessment and she plan of care. Disposition: 04/06/19 20:39 Discharged to Home. Impression: Chest pain, unspecified, Chronic obstructive pulmonary disease with (acute) exacerbation. - Condition is Stable. - Discharge Instructions: Nonspecific Chest Pain, Chronic Obstructive Pulmonary Disease Exacerbation. - Prescriptions for Zithromax Z- Timo 250 mg Oral Tablet - take 1 tablet by ORAL route as directed for 5 days Day 1 - take two (2) tablets one time. Day 2, 3, 4 , 5 take one (1) tablet once daily.; 6 tablet. Medrol (Timo) 4 mg Oral Tablets, Dose Pack - take 1 tablet by ORAL route as directed - follow package instructions; 1 packet. - Medication Reconciliation Form, Thank You Letter, Antibiotic Education, Prescription Opioid Use form. - Follow up: Emergency Department; When: As needed; Reason: Worsening of condition. Follow up: Private Physician; When: 2 - 3 days; Reason: Recheck today's complaints, Continuance of care, Re-evaluation by your physician. - Problem is new. - Symptoms have improved. Signatures: Dispatcher [employer] Stefano Donaldson MD MD cha Marinas, Patrick, NP ASSOCIATE SALES pm1 Refugio Concepcion RN RN mg2 Corrections: (The following items were deleted from the chart) 04/06 21:13 20:39 04/06/2019 20:39 Discharged to Home. Impression: Chest pain, unspecified; Chronic mg2 obstructive pulmonary disease with (acute) exacerbation. Condition is Stable. Forms are Medication Reconciliation Form, Thank You Letter, Antibiotic Education, Prescription Opioid Use. Follow up: Emergency Department; When: As needed; Reason: Worsening of condition. Follow up: Private Physician; When: 2 - 3 days; Reason: Recheck today's complaints, Continuance of care, Re-evaluation by your physician. Problem is new. Symptoms have improved. pm1
--- NOTE | 2019-04-06 20:40 | ER ---
Nurse's Notes [facility] Name: Mechelle Chapa Age: 83 yrs Sex: Female : 1935 Arrival Date: 04/06/2019 Time: 17:17 Bed 26 Private MD: Diagnosis: Chest pain, unspecified;Chronic obstructive pulmonary disease with (acute) exacerbation Presentation: 04/06 17:19 Presenting complaint: EMS states: she has intermittent chest pain and shortness of mg2 breath and weakness \T\1600 PM. her O2 sat is 80 % room air. Oxygen supplemented and it goes up to 94% with 3 l/NC. Transition of care: patient was not received from another setting of care. Onset of symptoms was April 06, 2019 at 16:00. Risk Assessment: Do you want to hurt yourself or someone else? Patient reports no desire to harm self or others. Initial Sepsis Screen: Does the patient meet any 2 criteria? No. Patient's initial sepsis screen is negative. Does the patient have a suspected source of infection? No. Patient's initial sepsis screen is negative. Care prior to arrival: None. 17:19 Method Of Arrival: EMS: [facility] mg2 17:19 Acuity: BA 3 mg2 Historical: - Allergies: 17:52 PENICILLINS; mg2 17:52 Demerol; mg2 17:52 Percodan; mg2 17:52 Codeine; mg2 17:52 Hydrocodone-Acetaminophen; mg2 17:52 Levaquin; mg2 17:52 sansert; mg2 17:52 Kenalog; mg2 17:52 Orabase (benzocaine); mg2 17:52 red wasp venom; mg2 17:52 gnats; mg2 17:52 Adhesives; mg2 17:52 sutritex; mg2 - PMHx: 17:52 heart blockage; mg2 - PSHx: 17:52 Appendectomy; Tonsillectomy; hysterectomy; fractured right hip; hammer toe sx; mg2 bilateral mastectomy with implants; - Immunization history:: Flu vaccine is up to date. - Coronavirus screen:: The patient has NOT traveled to [place], [place], or [place] in the past 14 days. Proceed with normal triage process as indicated. - Social history:: Smoking status: unknown. - Ebola Screening: : No symptoms or risks identified at this time. Screenin:09 Abuse screen: Denies threats or abuse. Nutritional screening: No deficits noted. tw2 Tuberculosis screening: No symptoms or risk factors identified. Fall Risk Secondary diagnosis (15 points) impaired mobility. Assessment: 18:30 General: Appears in no apparent distress. comfortable, Behavior is calm, cooperative. mg2 Pain: Complains of pain in mid-sternal area. Neuro: Level of Consciousness is awake, alert, obeys commands, Oriented to person, place, time, situation. Cardiovascular: Capillary refill < 3 seconds Patient's skin is warm and dry. Respiratory: Airway is patent Respiratory effort is even, unlabored, Respiratory pattern is regular, symmetrical. GI: No signs and/or symptoms were reported involving the gastrointestinal system. : No signs and/or symptoms were reported regarding the genitourinary system. EENT: No signs and/or symptoms were reported regarding the EENT system. Derm: Skin is intact, is healthy with good turgor, Skin is pink, warm \T\ dry. normal. Musculoskeletal: Circulation, motion, and sensation intact. Capillary refill < 3 seconds. 18:30 Respiratory: Reports shortness of breath. mg2 19:02 Reassessment: Patient appears in no apparent distress at this time. Patient and/or mg2 family updated on plan of care and expected duration. Pain level reassessed. Patient is alert, oriented x 3, equal unlabored respirations, skin warm/dry/pink. 20:00 Reassessment: Patient appears in no apparent distress at this time. Patient and/or mg2 family updated on plan of care and expected duration. Pain level reassessed. Patient is alert, oriented x 3, equal unlabored respirations, skin warm/dry/pink. Vital Signs: 17:22 BP 122 / 62; Pulse 94; Resp 18; Temp 98.3; Pulse Ox 98% on R/A; mg2 19:30 BP 135 / 80; Pulse 90; Resp 17; Temp 98; Pulse Ox 98% on 3 lpm NC; mg2 20:28 BP 144 / 44; Pulse 90; Resp 18; Pulse Ox 100% on R/A; mg2 21:05 BP 150 / 62; Pulse 82; Resp 18; Temp 98; Pulse Ox 97% on R/A; mg2 ED Course: 17:17 Patient arrived in ED. mg2 17:17 Bed in low position. Call light in reach. Side rails up X2. environmental monitoring technician on. Pulse tw2 ox on. NIBP on. 17:22 Triage completed. mg2 17:28 Gopi Alejo NP is PHCP. pm1 17:28 Stefano Ward MD is Attending Physician. pm1 17:48 Refugio Concepcion, RN is Primary Nurse. mg2 17:52 Arm band placed on. mg2 17:55 Initial lab(s) drawn, by me, sent to lab. Inserted saline lock: 22 gauge in left lt1 antecubital area, using aseptic technique. 17:58 XRAY Chest (1 view) In Process Unspecified. EDMS 18:48 No provider procedures requiring assistance completed. mg2 21:10 IV discontinued, intact, bleeding controlled, No redness/swelling at site. Pressure mg2 dressing applied. Administered Medications: 19:47 Drug: Xopenex 1.25 mg Route: Inhalation; mg2 21:10 Follow up: Response: No adverse reaction mg2 20:50 Drug: AZITHromycin 500 mg Route: PO; mg2 21:10 Follow up: Response: No adverse reaction; Medication administered at discharge. mg2 20:50 Drug: predniSONE 60 mg Route: PO; mg2 21:10 Follow up: Response: No adverse reaction; Medication administered at discharge. mg2 Outcome: 20:39 Discharge ordered by MD. pm1 21:12 Discharged to home via wheelchair, with family. mg2 21:12 Condition: stable 21:12 Discharge instructions given to patient, family, Instructed on discharge instructions, follow up and referral plans. medication usage, Demonstrated understanding of instructions, follow-up care, medications, Prescriptions given X 2. 21:13 Patient left the ED. mg2 Signatures: Dispatcher [employer] EDIA Gopi Alejo NP CARPET JOURNEYMAN pm1 Emily Rivas RN RN tw2 Refugio Concepcion, JAKE RN mg2 Stacia Martha lt1
[2019-04-06] MEDS ORDERED: AZITHROMYCIN 250 MG TAB ONE (20:51)
[2019-04-06] MEDS ORDERED: predniSONE 20 MG TAB ONE (20:51)
[2019-04-06 21:27] VITALS: TEMP 98
[2019-04-06 21:30] VITALS: BP 150/62; O2SAT 97
[2019-04-06 22:33] LABS: Blood Morphology Comment NOT SEEN (NOT SEEN); Platelet Estimate ADEQ
--- NOTE | 2019-04-07 15:57 | EKG ---
Test Date: 2019-04-06 Test Time: 17:23:29 Manager Managed Backup Services: RANJEET MEASUREMENT RESULTS: Intervals: Rate: 90 NE: 142 QRSD: 136 QT: 420 QTc: 513 [place]: P: 25 NE: 142 QRS: -15 T: 134 INTERPRETIVE STATEMENTS: Normal sinus rhythm Left bundle branch block Abnormal ECG Compared to ECG 01/27/2018 01:05:30 No significant changes Electronically Signed On 04-07-19 15:52:27 MANUAL TRAINING TEACHER by Edenilson Pradhan
== END 2019-04-06 21:13 | disposition home or self-care (01) ==
LOC: ER 17:12
DX: J44.1 Chronic obstructive pulmonary disease with (acute) exacerbation (principal); Z98.82 Breast implant status; Z88.0 Allergy status to penicillin; Z88.1 Allergy status to other antibiotic agents; Z88.5 Allergy status to narcotic agent; Z91.038 Other insect allergy status; Z91.048 Other nonmedicinal substance allergy status
CPT/HCPCS: 36415; 71045; 80048; 80076; 83735; 83880; 84484; 85025; 85610; 93005; 99285; J7512

== ENCOUNTER 2019-05-19 04:42 | Observation (INO) | payer OTHER ==
--- OUTSIDE RECORDS SUMMARY | 2019-05-19 04:44 | XMS REPORT ---
:1935 [facility] Address [address] [place] [address] Dr. Ellington [address] [place] [id number] Care Team Providers Name Role Phone Unavailable Unavailable Unavailable Problems This patient has no known problems. Allergies, Adverse Reactions, Alerts This patient has no known allergies or adverse reactions. Medications This patient has no known medications.
--- OUTSIDE RECORDS SUMMARY | 2019-05-19 04:45 | XMS REPORT | Summary of Care ---
:1935 Author Organization [facility] - Health Address [address] [place] [id number] Care Team Providers Name Role Phone Leroy Carson Primary Care Provider Encounter Details Date Type Department Care Team Description 04/15/2019 Orders Only [facility] Doctor Unassigned, No [address] [facility] [place] [address] [address] [place] [address] Allergies Active Allergy Reactions Severity Noted Date Comments Adhesive Rash Low 08/25/2014 Tape-Silicones Buprenorphine Rash 12/18/2016 Codeine Nausea and/or Medium 08/25/2014 Vomiting Meperidine Hcl Nausea and/or High 08/25/2014 First time received - Vomiting, Rash, rash and nausea Other - See comments Second time received - unconsciousness for 48 hours Hydrocodone Nausea and/or Medium 08/25/2014 Vomiting Triamcinolone Other - See comments Medium 08/25/2014 Thrush in mouth Acetonide Levofloxacin Hives, Rash Medium 08/25/2014 Meperidine Rash 12/18/2016 Benzocaine Other - See comments Medium 08/25/2014 Thrush in mouth Oxycodone-Aspirin Rash 12/18/2016 Penicillins Anaphylaxis, Rash High 08/25/2014 Oxycodone Rash, Swelling High 08/25/2014 [id number]-[id number]-[id number] Sansert Rash Medium 08/25/2014 Rash progressing to large raised areas that appear "burned" Buprenorphine Hcl Dizziness, Shortness Medium 08/25/2014 of Breath Venom-Wasp Anaphylaxis High 08/25/2014 documented as of this encounter (statuses as of 04/17/2019) Medications Medication Sig Dispensed Refills Start Date End Date Status Dexlansoprazole 60 mg Take 60 mg by 0 Active capsule mouth. pramipexole 0.25 mg 0.25 mg. 0 11/16/2016 Active tablet losartan 50 mg tablet 50 mg. 0 12/16/2016 Active furosemide 40 mg tablet 40 mg. 0 10/04/2016 Active primidone 250 mg tablet 0 01/09/2018 Active topiramate 100 mg tablet 0 12/19/2017 Active amitriptyline 50 mg 0 01/28/2018 Active tablet pregabalin (LYRICA) 75 every 12 0 11/16/2016 Active mg capsule (twelve) hours as needed. ondansetron (ZOFRAN ODT) Take 1 tablet by 14 tablet 0 03/09/2019 Active 4 mg disintegrating mouth every 8 tabletIndications: Cough (eight) hours as needed for Nausea and Vomiting (N/V). documented as of this encounter (statuses as of 04/17/2019) Active Problems No known active problemsdocumented as of this encounter (statuses as of 2019) Social History Tobacco Use Types Packs/Day Years Used Date Never Smoker Smokeless Tobacco: Never Used Alcohol Use Drinks/Week oz/Week Comments No Sober X 13 years Sex Assigned at Date Recorded Not on file Job Start Date Occupation Industry Not on file Not on file Not on file Travel History Travel Start Travel End No recent travel history available. documented as of this encounter Last Filed Vital Signs Not on filedocumented in this encounter Plan of Treatment Health Maintenance Due Date Last Done Comments DTaP,Tdap,and Td Vaccines (1 - Tdap) 1946 Zoster Recombinant Vaccine (SHINGRIX) (1 of 2) 06/30/1987 Medicare Wellness Visit 2002 Osteoporosis Screening 2002 PNEUMOCOCCAL VACCINES 65+ (1 of 2 - PCV13) 2002 INFLUENZA VACCINE (#1) 2018 documented as of this encounter Procedures Procedure Name Priority Date/Time Associated Diagnosis Comments REFERRAL- Routine 04/15/2019 12:01 AM PLANT TENDER REQUEST/RESPONSE documented in this encounter Results Not on filedocumented in this encounter Insurance Payer Benefit Plan / Subscriber ID Effective Phone Address Type Group Dates WELLCARE WELLCARE [id number] 2018-Prese Medicare Adv MEDICARE NON MEDICARE NON nt PPO CONTRACTED [facility] [id number] 2019-Pre Medicare Adv PLUS PLUS sent HMO CLASSIC/VALUE documented as of this encounter
[2019-05-19 05:13] LABS: Absolute Lymphocytes (CBC) 2.5 K/uL (0.7-4.9); Basophils % 0.9 % (0-1.3); Hematocrit 40.8 % (36.0-45.0); MPV 9.7 fL (7.6-11.3); RBC Red Blood Cell Count 4.57 M/uL (3.86-4.86)
[2019-05-19 05:18] LABS: Protime INR 0.97
[2019-05-19 05:34] LABS: ALT/SGPT 19 U/L (12-78); AST/SGOT 22 U/L (15-37); Albumin 3.5 g/dL (3.4-5.0); Alkaline Phosphatase 88 U/L (45-117); BUN Blood Urea Nitrogen 13 mg/dL (7-18); Bicarbonate 30 mmol/L (21-32); Bilirubin Direct < 0.1 mg/dL (0-0.2); Bilirubin Total 0.2 mg/dL (0.2-1.0); CKMB Creatine Kinase MB 1.1 ng/mL (0.3-3.6); Creatine Phosphokinase 71 U/L (26-192); Glucose Level 95 mg/dL (74-106); Lipase 186 U/L (73-393); Magnesium 2.1 mg/dL (1.8-2.4); Potassium 3.7 mmol/L (3.5-5.1); Protein, Total 6.7 g/dL (6.4-8.2); Sodium Level 142 mmol/L (136-145); Troponin (Emerg Dept Use Only) < 0.02 ng/mL (0.0-0.045)
--- NOTE | 2019-05-19 06:11 | ER ---
Nurse's Notes [facility] Name: Mechelle Chapa Age: 83 yrs Sex: Female : 1935 Arrival Date: 05/19/2019 Time: 04:50 Bed 4 Private MD: Diagnosis: Cerebral infarction;Weakness;Aphasia following cerebral infarction Presentation: 05/18 04:50 Chief complaint: Spouse and/or significant other states: Pt woke up at 0200 this tl2 morning complaining of weakness and numbness of the left arm. Last known normal was at 1700 yesterday afternoon. Coronavirus screen: The patient has NOT traveled to a country currently being monitored by the CDC within the last 14 days. The patient has NOT had contact with any known and/or suspected case of coronavirus. Proceed with normal triage procedures. Ebola Screen: No symptoms or risks identified at this time. An acute neurological deficit is present. The charge nurse has been notified. The patient has been moved to a treatment area. The patients blood glucose was checked before arriving to the hospital and was found to be normal. Initial Sepsis Screen: Does the patient meet any 2 criteria? No. Patient's initial sepsis screen is negative. Does the patient have a suspected source of infection? No. Patient's initial sepsis screen is negative. Risk Assessment: Do you want to hurt yourself or someone else? Patient reports no desire to harm self or others. 04:50 Method Of Arrival: EMS: [facility] tl2 04:50 Acuity: BA 2 tl2 05:34 Onset of symptoms was May 18, 2019 at 17:00. tl2 Triage Assessment: 04:50 The onset of the patients symptoms was more than six hours ago. General: Appears in no tl2 apparent distress. Behavior is calm, cooperative, drowsy. Pain: Complains of pain in left arm. Neuro: Level of Consciousness is awake, lethargic, Oriented to person, place, time, Sound Effects Technician are weak on left Speech is slurred, Facial symmetry appears normal, Pupils are PERRLA, Numbness in left hand Reports numbness in left arm weakness in left arm. Cardiovascular: Denies chest pain. Respiratory: Airway is patent Respiratory effort is even, unlabored, Respiratory pattern is regular, symmetrical. GI: No signs and/or symptoms were reported involving the gastrointestinal system. : No signs and/or symptoms were reported regarding the genitourinary system. Derm: Skin is pink, warm \T\ dry. 05:34 The onset of the patients symptoms was May 18, 2019 at 17:00. tl2 Stroke Activation: Physician: Stroke Attending; Name: ; Notified At: ; Arrived At: Physician: Chief Stroke Resident; Name: ; Notified At: ; Arrived At: Physician: Stroke Resident; Name: ; Notified At: ; Arrived At: Physician: ED Attending; Name: Raffi; Notified At: 04:50; Arrived At: 04:50 Physician: ED Resident; Name: ; Notified At: ; Arrived At: Historical: - Allergies: 05:27 Adhesives; tl2 05:27 Codeine; tl2 05:27 Demerol; tl2 05:27 gnats; tl2 05:27 Hydrocodone-Acetaminophen; tl2 05:27 Kenalog; tl2 05:27 Levaquin; tl2 05:27 Orabase (benzocaine); tl2 05:27 PENICILLINS; tl2 05:27 Percodan; tl2 05:27 red wasp venom; tl2 05:27 sansert; tl2 05:27 sutritex; tl2 - Home Meds: 05:27 Dexilant 60 mg oral CpDB 1 cap once daily [Active]; topiramate 100 mg oral CSpX 1 cap tl2 once daily [Active]; amitriptyline 50 mg Oral tab 1 tab once daily [Active]; atorvastatin 80 mg oral tab 1 tab once daily [Active]; Lyrica Oral [Active]; oxybutynin chloride 5 mg Oral tr24 1 tab once daily [Active]; - PMHx: 05:27 heart blockage; tl2 - PSHx: 05:27 Appendectomy; Tonsillectomy; Hysterectomy; Mastectomy; tl2 - Immunization history:: Adult Immunizations up to date. - Social history:: Smoking status: Patient denies any tobacco usage or history of. Screenin:31 Abuse screen: Denies threats or abuse. Nutritional screening: No deficits noted. tl2 Tuberculosis screening: No symptoms or risk factors identified. Fall Risk IV access (20 points). Gait- Impaired (20 pts.). Assessment: 04:55 T-PA (Activase) Screening: Contraindications: Patient reports onset of signs and tl2 symptoms of stroke greater than 6 hours ago:. 05:10 VAN Scoring: Arm Drift: Minor drift Visual Disturbance: No visual disturbance noted. jd3 Aphasia: No aphasia noted. Neglect: No neglect noted. 05:10 The patient has not been NPO before screening. The patient is currently on the jd3 following diet: regular The patient is alert, and able to follow commands. The patient exhibits slurred or garbled speech. The patient is not exhibiting difficulty speaking. The patient does not exhibit difficulty understanding words. The patient is able to swallow own secretions with no drooling or need for suction. pt failed due to slurred speech pt failed due to slurred speech The patient failed the bedside swallow screening. The patient will be kept NPO until cleared by Speech Therapy or Physician. Provider notified of bedside swallow screening results: Maximiliano Nugent MD. 07:06 Reassessment: Patient appears in no apparent distress at this time. request something em for pain, reports having advanced osteoporosis and takes lyrica for pain, also reports she can take morphine, provider notified. 07:41 Reassessment: ultrasound at bedside doing carotid ultrasound. 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 Alvarenga notified, received phone orders for 0.5 mg Ativan IV x1. Vital Signs: 04:50 BP 106 / 71; Pulse 86; Resp 18; Temp 98.2(O); Pulse Ox 96% on R/A; Weight 77.11 kg; tl2 Height 5 ft. 3 in. (160.02 cm); 04:50 BP 106 / 71; Pulse 84; Resp 20; Temp 98.4(O); Pulse Ox 96% on R/A; Weight 77.11 kg; tl2 Height 5 ft. 3 in. (160.02 cm); 05:30 BP 121 / 66; Pulse 82; Resp 18; Pulse Ox 97% on R/A; tl2 06:00 BP 127 / 63; Pulse 81; Resp 18; Pulse Ox 95% on R/A; tl2 06:30 BP 132 / 50; Pulse 80; Resp 16; Pulse Ox 97% on R/A; tl2 07:06 BP 120 / 63; Pulse 80; Resp 16; Pulse Ox 98% on R/A; Pain 10/10; em 04:50 Body Mass Index 30.11 (77.11 kg, 160.02 cm) tl2 NIH Stroke Scale Scores: 05:10 NIHSS Score: 5 jd3 06:01 NIHSS Score: 7 tw4 ED Course: 04:50 Patient arrived in ED. bb 04:50 Arm band placed on right wrist. tl2 04:54 Maximiliano Nugent MD is Attending Physician. tw4 05:00 Patient has correct armband on for positive identification. Placed in gown. Bed in low tl2 position. Call light in reach. Side rails up X2. Adult w/ patient. campus monitor on. Pulse ox on. NIBP on. 05:00 Maintain EMS IV. Dressing intact. Good blood return noted. Site clean \T\ dry. Gauge \T\ tl 2 site: 18 L FA. 05:10 EKG completed in triage. Results shown to MD. tl2 05:15 CT Stroke Brain w/o Contrast In Process Unspecified. EDMS 05:20 Triage completed. tl2 05:32 Stroke CXR 1 View In Process Unspecified. EDMS 06:08 Yas Darden MD is Hospitalizing Provider. tw4 07:03 Daljit Nunez RN is Primary Nurse. em 10:07 No provider procedures requiring assistance completed. Patient admitted, IV remains in em place. Administered Medications: 07:26 Drug: morphine 2 mg Route: IVP; Site: left forearm; em 08:12 Follow up: Response: No adverse reaction; Marked relief of symptoms; Pain is decreased em 09:03 Drug: Ativan 0.5 mg Route: IVP; Site: left forearm; em 10:29 Follow up: Response: No adverse reaction; Marked relief of symptoms em Point of Care Testing: Blood Glucose: 04:50 Blood Glucose: 121 mg/dL; tl2 Ranges: Outcome: 06:10 Decision to Hospitalize by Provider. tw4 10:07 Admitted to Tele accompanied by tech, via stretcher, with oxygen, with chart, Report em called to JAKE Charles 10:07 Condition: good 10:07 Instructed on the need for admit, Demonstrated understanding of instructions. 10:30 Patient left the ED. em NIH Stroke Scale - NIH Stroke Score Date: 05/19/2019 Time: 05:10 Total Score = 5 1a. Level of Consciousness (LOC) - 0(Alert) 1b. Level of Consciousness (LOC) (Year \T\ Age) - 0(Both) 1c. LOC Commands (Open \T\ Closes Eyes/Tower Equipment Repairer) - 0(Both) 2. Best Gaze (Lateral Gaze Paresis) - 0(Normal) 3. Visual Field Loss - 0(No visual loss) 4. Facial Palsy - 0(Normal) 5a. Left Arm: Motor (10-second hold) - 1(Drift) 5b. Right Arm: Motor (10-second hold) - 0(No drift) 6a. Left Leg: Motor (5-second hold - always test supine) - 1(Drift) 6b. Right Leg: Motor (5-second hold - always test supine) - 0(No drift) 7. Limb Ataxia (finger/nose \T\ heel/olmedo - test with eyes open) - 1(Present in one limb) 8. Sensory Loss (pinprick arms/legs/face) - 1(Mild to moderate loss) 9. Best Language: Aphasia (description/naming/reading) - 0(No aphasia) 10. Dysarthria (speech clarity - read or repeat words) - 1(Mild to Moderate) 11. Extinction and Inattention (visual/tactile/auditory/spatial/personal) - 0(No abnormality) Initials: jd3 NIH Stroke Scale - NIH Stroke Score Date: 05/19/2019 Time: 06:01 Total Score = 7 1a. Level of Consciousness (LOC) - 0(Alert) 1b. Level of Consciousness (LOC) (Year \T\ Age) - 0(Both) 1c. LOC Commands (Open \T\ Closes Eyes/Tower Equipment Repairer) - 0(Both) 2. Best Gaze (Lateral Gaze Paresis) - 0(Normal) 3. Visual Field Loss - 0(No visual loss) 4. Facial Palsy - 0(Normal) 5a. Left Arm: Motor (10-second hold) - 1(Drift) 5b. Right Arm: Motor (10-second hold) - 0(No drift) 6a. Left Leg: Motor (5-second hold - always test supine) - 3(No effort against gravity) 6b. Right Leg: Motor (5-second hold - always test supine) - 0(No drift) 7. Limb Ataxia (finger/nose \T\ heel/olmedo - test with eyes open) - 1(Present in one limb) 8. Sensory Loss (pinprick arms/legs/face) - 1(Mild to moderate loss) 9. Best Language: Aphasia (description/naming/reading) - 1(Mild to moderate aphasia) 10. Dysarthria (speech clarity - read or repeat words) - 0(Normal) 11. Extinction and Inattention (visual/tactile/auditory/spatial/personal) - 0(No abnormality) Initials: tw4 Signatures: Dispatcher [employer] Daljit Byrne RN RN Dhara Feliciano RN RN Margie Wren RN RN tl2 Segundo Lee RN RN jd3 Maximiliano Nugent MD MD tw4 Corrections: (The following items were deleted from the chart) 05:25 05:10 The patient has not been NPO before screening. The patient is currently jd3 on the following diet: regular The patient is alert, and able to follow commands. The patient exhibits slurred or garbled speech. The patient is not exhibiting difficulty speaking. The patient does not exhibit difficulty understanding words. The patient is able to swallow own secretions with no drooling or need for suction. The patient failed the bedside swallow screening. The patient will be kept NPO until cleared by Speech Therapy or Physician. jd3
--- NOTE | 2019-05-19 06:11 | EDPHYS ---
Physician Documentation [facility] Name: Mechelle Chapa Age: 83 yrs Sex: Female : 1935 Arrival Date: 05/19/2019 Time: 04:50 Bed 4 Private MD: ED Physician Maximiliano Nugent HPI: 05/18 06:01 This 83 yrs old Female presents to ER via EMS with complaints of S/S of tw4 Possible Stroke. 06:01 The patient's problem is reported as weakness, in the left upper extremity, in the left tw4 lower extremity. Onset: The symptoms/episode began/occurred 12 hour(s) ago. Duration: This was a single incident. Associated signs and symptoms: The patient has no apparent associated signs or symptoms. Patient's baseline: Neuro: alert and fully oriented, Motor: no deficits, Ambulation: walks with assist only. The patient has not experienced similar symptoms in the past. Historical: - Allergies: 05:27 Adhesives; tl2 05:27 Codeine; tl2 05:27 Demerol; tl2 05:27 gnats; tl2 05:27 Hydrocodone-Acetaminophen; tl2 05:27 Kenalog; tl2 05:27 Levaquin; tl2 05:27 Orabase (benzocaine); tl2 05:27 PENICILLINS; tl2 05:27 Percodan; tl2 05:27 red wasp venom; tl2 05:27 sansert; tl2 05:27 sutritex; tl2 - Home Meds: 05:27 Dexilant 60 mg oral CpDB 1 cap once daily [Active]; topiramate 100 mg oral CSpX 1 cap tl2 once daily [Active]; amitriptyline 50 mg Oral tab 1 tab once daily [Active]; atorvastatin 80 mg oral tab 1 tab once daily [Active]; Lyrica Oral [Active]; oxybutynin chloride 5 mg Oral tr24 1 tab once daily [Active]; - PMHx: 05:27 heart blockage; tl2 - PSHx: 05:27 Appendectomy; Tonsillectomy; Hysterectomy; Mastectomy; tl2 - Immunization history:: Adult Immunizations up to date. - Social history:: Smoking status: Patient denies any tobacco usage or history of. ROS: 06:01 Constitutional: Negative for fever, chills, and weight loss, Eyes: Negative for injury, tw4 pain, redness, and discharge, Cardiovascular: Negative for chest pain, palpitations, and edema, Respiratory: Negative for shortness of breath, cough, wheezing, and pleuritic chest pain, Abdomen/GI: Negative for abdominal pain, nausea, vomiting, diarrhea, and constipation, Back: Negative for injury and pain, Skin: Negative for injury, rash, and discoloration. 06:01 Neuro: Positive for weakness, Negative for altered mental status, dizziness, gait disturbance, headache, numbness, seizure activity, speech changes, syncope. Exam: 06:01 Radiologist reports: no acure changes tw4 06:01 Constitutional: This is a well developed, well nourished patient who is awake, alert, and in no acute distress. Head/Face: Normocephalic, atraumatic. Chest/axilla: Normal chest wall appearance and motion. Nontender with no deformity. No lesions are appreciated. Cardiovascular: Regular rate and rhythm with a normal S1 and S2. No gallops, murmurs, or rubs. Normal PMI, no JVD. No pulse deficits. Respiratory: Lungs have equal breath sounds bilaterally, clear to auscultation and percussion. No rales, rhonchi or wheezes noted. No increased work of breathing, no retractions or nasal flaring. Abdomen/GI: Soft, non-tender, with normal bowel sounds. No distension or tympany. No guarding or rebound. No evidence of tenderness throughout. Back: No spinal tenderness. No costovertebral tenderness. Full range of motion. MS/ Extremity: Pulses equal, no cyanosis. Neurovascular intact. Full, normal range of motion. 06:01 Neuro: Orientation: to person, place \T\ time. Mentation: slow to respond, Memory: is normal, Cranial nerves: CN II- XII are normal as tested, Cerebellar function: dysmetria is noted on the left, Motor: strength is 4/5 in the left leg, Strength is 3/5 in the left arm. Vital Signs: 04:50 BP 106 / 71; Pulse 86; Resp 18; Temp 98.2(O); Pulse Ox 96% on R/A; Weight 77.11 kg; tl2 Height 5 ft. 3 in. (160.02 cm); 04:50 BP 106 / 71; Pulse 84; Resp 20; Temp 98.4(O); Pulse Ox 96% on R/A; Weight 77.11 kg; tl2 Height 5 ft. 3 in. (160.02 cm); 05:30 BP 121 / 66; Pulse 82; Resp 18; Pulse Ox 97% on R/A; tl2 06:00 BP 127 / 63; Pulse 81; Resp 18; Pulse Ox 95% on R/A; tl2 06:30 BP 132 / 50; Pulse 80; Resp 16; Pulse Ox 97% on R/A; tl2 07:06 BP 120 / 63; Pulse 80; Resp 16; Pulse Ox 98% on R/A; Pain 10/10; em 04:50 Body Mass Index 30.11 (77.11 kg, 160.02 cm) tl2 NIH Stroke Scale Scores: 05:10 NIHSS Score: 5 jd3 06:01 NIHSS Score: 7 tw4 MDM: 04:55 Patient medically screened. tw4 06:01 Differential diagnosis: CVA, TIA. Data reviewed: vital signs, nurses notes. Data tw4 interpreted: Pulse oximetry: Interpretation: normal. Test interpretation: by ED physician or midlevel provider: ECG, plain radiologic studies. Counseling: I had a detailed discussion with the patient and/or guardian regarding: the historical points, exam findings, and any diagnostic results supporting the discharge/admit diagnosis, lab results, radiology results. Physician consultation: Yas Darden MD was contacted at 05:36, regarding admission, to the telemetry unit. patient's condition, and will see patient in inpatient room. 05/18 04:56 Order name: Magnesium 4 05/18 04:56 Order name: CPK 05/18 04:56 Order name: Lipase 05/18 04:56 Order name: Ckmb 05/18 04:56 Order name: Hepatic Function 05/18 04:56 Order name: Troponin (emerg Dept Use Only) 05/18 04:56 Order name: Basic Metabolic Panel 05/18 04:56 Order name: CBC with Diff 05/18 04:56 Order name: Protime (+inr) tw4 05/18 04:56 Order name: Ptt, Activated 05/18 04:56 Order name: Magnesium EDMS 05/18 04:56 Order name: Creatine Phosphokinase EDMS 05/18 05:16 Order name: Manual Differential EDMS 05/18 07:12 Order name: CBC with Automated Diff EDMS 05/18 04:56 Order name: CT Stroke Brain w/o Contrast tw4 05/18 04:56 Order name: Stroke CXR 1 View tw4 05/18 07:12 Order name: Echo with Doppler EDMS 05/18 07:12 Order name: CBC with Automated Diff EDMS 05/18 07:12 Order name: Comprehensive Metabolic Panel EDMS 05/18 07:12 Order name: Comprehensive Metabolic Panel EDMS 05/18 07:12 Order name: Lipid Profile EDMS 05/18 07:12 Order name: Lipid Profile EDMS 05/18 07:12 Order name: Magnesium EDMS 05/18 07:12 Order name: Magnesium EDMS 05/18 07:12 Order name: Phosphorus EDMS 05/18 07:12 Order name: Phosphorus EDMS 05/18 07:14 Order name: Stroke Protocol EDMS 05/18 07:15 Order name: Chest Pa And Lat (2 Views) EDMS 05/18 07:15 Order name: Carotid Artery Bilateral EDMS 05/18 04:56 Order name: Call for Old Records 4 05/18 04:56 Order name: Call for Old EKG 05/18 04:56 Order name: EKG; Complete Time: 04:57 05/18 04:56 Order name: Accucheck; Complete Time: 05:51 05/18 04:56 Order name: Cardiac monitoring; Complete Time: 05:51 05/18 04:56 Order name: EKG - Nurse/Tech; Complete Time: 05:51 05/18 04:56 Order name: IV Saline Lock; Complete Time: 05:51 05/18 04:56 Order name: Labs collected and sent; Complete Time: 05:51 05/18 04:56 Order name: NPO; Complete Time: 05:52 05/18 04:56 Order name: O2 Per Protocol; Complete Time: 05:52 05/18 04:56 Order name: O2 Sat Monitoring; Complete Time: 05:52 05/18 04:56 Order name: Stroke Swallow Screen; Complete Time: 05:52 tw4 03/10 07:11 Order name: Physical Therapy Consult [facility] 05/18 07:12 Order name: NPO [facility] 05/18 07:12 Order name: NPO [facility] 05/18 07:12 Order name: NPO [facility] 05/18 07:12 Order name: EKG Electrocardiogram [facility] 05/18 07:14 Order name: Speech Therapy Consult [facility] EC:10 Rate is 86 beats/min. Rhythm is regular. QRS [place] is Normal. [place] interval is normal. QRS tw4 interval is prolonged. QT interval is prolonged. No Q waves. T waves are Normal. No ST changes noted. Clinical impression: LVH. Interpreted by me. Reviewed by me. Administered Medications: 07:26 Drug: morphine 2 mg Route: IVP; Site: left forearm; em 08:12 Follow up: Response: No adverse reaction; Marked relief of symptoms; Pain is decreased em 09:03 Drug: Ativan 0.5 mg Route: IVP; Site: left forearm; em 10:29 Follow up: Response: No adverse reaction; Marked relief of symptoms em Point of Care Testing: Blood Glucose: 04:50 Blood Glucose: 121 mg/dL; tl2 Ranges: Critical Glucose Levels:Adult <50 mg/dl or >400 mg/dl <40 mg/dl or >180 mg/dl Disposition: 05/19/19 06:10 Hospitalization ordered by Yas Darden for Inpatient Admission. Preliminary diagnosis are Cerebral infarction, Weakness, Aphasia following cerebral infarction. - Bed requested for Telemetry/MedSurg (Inpatient). - Status is Inpatient Admission. em - Condition is Stable. - Problem is new. - Symptoms are unchanged. NIH Stroke Scale - NIH Stroke Score Date: 05/19/2019 Time: 05:10 Total Score = 5 1a. Level of Consciousness (LOC) - 0(Alert) 1b. Level of Consciousness (LOC) (Year \T\ Age) - 0(Both) 1c. LOC Commands (Open \T\ Closes Eyes/Carton Making Machinist) - 0(Both) 2. Best Gaze (Lateral Gaze Paresis) - 0(Normal) 3. Visual Field Loss - 0(No visual loss) 4. Facial Palsy - 0(Normal) 5a. Left Arm: Motor (10-second hold) - 1(Drift) 5b. Right Arm: Motor (10-second hold) - 0(No drift) 6a. Left Leg: Motor (5-second hold - always test supine) - 1(Drift) 6b. Right Leg: Motor (5-second hold - always test supine) - 0(No drift) 7. Limb Ataxia (finger/nose \T\ heel/[place] - test with eyes open) - 1(Present in one limb) 8. Sensory Loss (pinprick arms/legs/face) - 1(Mild to moderate loss) 9. Best Language: Aphasia (description/naming/reading) - 0(No aphasia) 10. Dysarthria (speech clarity - read or repeat words) - 1(Mild to Moderate) 11. Extinction and Inattention (visual/tactile/auditory/spatial/personal) - 0(No abnormality) Initials: jd3 NIH Stroke Scale - NIH Stroke Score Date: 05/19/2019 Time: 06:01 Total Score = 7 1a. Level of Consciousness (LOC) - 0(Alert) 1b. Level of Consciousness (LOC) (Year \T\ Age) - 0(Both) 1c. LOC Commands (Open \T\ Closes Eyes/Carton Making Machinist) - 0(Both) 2. Best Gaze (Lateral Gaze Paresis) - 0(Normal) 3. Visual Field Loss - 0(No visual loss) 4. Facial Palsy - 0(Normal) 5a. Left Arm: Motor (10-second hold) - 1(Drift) 5b. Right Arm: Motor (10-second hold) - 0(No drift) 6a. Left Leg: Motor (5-second hold - always test supine) - 3(No effort against gravity) 6b. Right Leg: Motor (5-second hold - always test supine) - 0(No drift) 7. Limb Ataxia (finger/nose \T\ heel/[place] - test with eyes open) - 1(Present in one limb) 8. Sensory Loss (pinprick arms/legs/face) - 1(Mild to moderate loss) 9. Best Language: Aphasia (description/naming/reading) - 1(Mild to moderate aphasia) 10. Dysarthria (speech clarity - read or repeat words) - 0(Normal) 11. Extinction and Inattention (visual/tactile/auditory/spatial/personal) - 0(No abnormality) Initials: tw4 Signatures: Dispatcher [employer] Daljit Byrne, RN RN Kristy Escobedo RN RN tl1 Margie Melvin RN RN tl2 Maximiliano Nugent MD MD tw4 Corrections: (The following items were deleted from the chart) 09:50 06:10 Hospitalization Ordered by Yas Darden MD for Inpatient Admission. tl1 Preliminary diagnosis is Cerebral infarction; Weakness; Aphasia following cerebral infarction. Bed requested for Telemetry/MedSurg (Inpatient). Status is Inpatient Admission. Condition is Stable. Problem is new. Symptoms are unchanged. tw4 10:30 09:50 05/19/2019 06:10 Hospitalization Ordered by Yas Darden MD for em Inpatient Admission. Preliminary diagnosis is Cerebral infarction; Weakness; Aphasia following cerebral infarction. Bed requested for Telemetry/MedSurg (Inpatient). Status is Inpatient Admission. Condition is Stable. Problem is new. Symptoms are unchanged. tl1
[2019-05-19] MEDS ORDERED: ACETAMINOPHEN 500 MG TAB PO PRN (07:04)
[2019-05-19] MEDS ORDERED: ONDANSETRON 4 MG/2 ML VIAL IV PRN (07:04)
[2019-05-19] MEDS ORDERED: MORPHINE 2 MG/ML SYR ONE (07:22)
--- NOTE | 2019-05-19 07:50 | RAD REPORT ---
EXAM DESCRIPTION: [place] Single View05/19/2019 5:32 am CLINICAL HISTORY: Shortness of breath COMPARISON: March 2019 FINDINGS: The patient is in a poor degree of inspiration. The The lungs appear clear of acute infiltrate. The heart is normal size IMPRESSION: No acute abnormalities displayed
[2019-05-19] MEDS: NA CHLORIDE 0.9% 1,000 ML IV SCH ×2 (08:00→21:52)
[2019-05-19 08:28] LABS: Blood Morphology Comment NOT SEEN (NOT SEEN); Platelet Estimate ADEQ
[2019-05-19] MEDS ORDERED: LORazepam 2 MG/ML VIAL ONE (08:41)
[2019-05-19] MEDS ORDERED: CLOPIDOGREL 75 MG TABLET ONE (08:57)
[2019-05-19] MEDS ORDERED: ENOXAPARIN 40 MG/0.4 ML SQ ONE (08:57)
[2019-05-19] MEDS ORDERED: NA CHLORIDE 0.9% 1,000 ML ONE (08:57)
[2019-05-19] MEDS: CLOPIDOGREL 75 MG TABLET PO SCH (09:00)
[2019-05-19] MEDS: ENOXAPARIN 40 MG/0.4 ML SQ SCH (09:00)
--- NOTE | 2019-05-19 10:23 | RAD REPORT ---
EXAM DESCRIPTION: MRI - Brain W/Wo Cont - 05/19/2019 10:09 am CLINICAL HISTORY: . Headache, drowsiness, CVA symptomology COMPARISON: MRA Head Wo Cont dated 05/19/2019; Brain Wo Cont dated 06/11/2018; Brain Wo Cont dated 06/23 TECHNIQUE: Multi-sequence, multiplanar MR imaging of the brain was performed with contrast. FINDINGS: No intracranial hemorrhage, hydrocephalus, or extra-axial fluid collection.Advanced brain atrophy with mild confluent T2/FLAIR hyperintensity in the periventricular and deep white matter is p resent compatible with chronic microvascular ischemic changes. No edema or shift of midline structure s. No intracranial mass. DWI is negative for acute CVA. The midline structures are normally formed. Mastoid air cells and paranasal sinuses are clear. Post-contrast images show no abnormal enhancement to suggest tumor or infection. IMPRESSION: Advanced brain atrophy. Negative for acute CVA or other acute intracranial process.
--- NOTE | 2019-05-19 10:26 | RAD REPORT ---
EXAM DESCRIPTION: MRI - MRA Head Wo Cont - 05/19/2019 10:09 am CLINICAL HISTORY: Aphasia; left-sided weakness CVA COMPARISON: Ct Stroke Brain Wo Cont dated 05/19/2019 FINDINGS: 3D noncontrast [id number] MR angiography of the [place] was performed. No aneurysm, flow-limiting stenosis or vascular malformation is seen. Forward flow seen in codominant vertebral arteries. The visualized dural venous sinuses appear patent. IMPRESSION: No significant flow abnormality of the [place] is identified.
--- NOTE | 2019-05-19 10:29 | RAD REPORT ---
EXAM DESCRIPTION: MRI - MRA Neck W/Wo Cont - 05/19/2019 10:09 am CLINICAL HISTORY: . Headache, drowsiness, CVA symptomology COMPARISON: Carotid Artery Bilateral dated 05/19/2019 FINDINGS: Contrast enhance 2D [id number] MR angiography of the neck vessels was performed. A left aortic arch is noted. Mild narrowing of the proximal left internal carotid artery just distal to the left carotid bulb is s een. Narrowing is estimated at 50% based on NASCET criteria. No significant stenosis of the right int ernal carotid artery is seen. High-grade stenosis is seen at the proximal aspect right external carotid artery. Antegrade flow is seen both vertebral arteries. IMPRESSION: Approximate 50% stenosis based on NASCET criteria left proximal internal carotid artery, just distal to the carotid bulb.
[2019-05-19 11:26] VITALS: BMI 30.1
--- NOTE | 2019-05-19 12:11 | P.PN ---
Subjective Date of Service: 05/19/19 Chief Complaint: slurred speech Subjective: No new changes Physical Examination - Vital Signs Temperature: 98.4 F Blood Pressure: 120/63 Pulse: 80 Respirations: 16 - Physical Exam General: Alert, In no apparent distress, Oriented x3 HEENT: Atraumatic, Normocephalic Neck: Supple, 2+ carotid pulse no bruit, JVD not distended Respiratory: Clear to auscultation bilaterally, Normal air movement Cardiovascular: No edema, Regular rate/rhythm, Normal S1 S2 Gastrointestinal: Normal bowel sounds, Soft and benign, Non-distended Musculoskeletal: No clubbing, No swelling Integumentary: No rashes, No breakdown Neurological: Normal strength at 5/5 x4 extr, Abnormal speech - Studies Laboratory Data (last 24 hrs) 05/19/19 05:04: PT 11.5, INR 0.97, APTT 30.7 05/19/19 05:04: WBC 6.4, Hgb 13.3, Hct 40.8, Plt Count 141 L 05/19/19 05:04: Sodium 142, Potassium 3.7, BUN 13, Creatinine 0.86, Glucose 95, Magnesium 2.1, Total Bilirubin 0.2, AST 22, ALT 19, Alkaline Phosphatase 88, Lipase 186 Imagings Data: MRI.BRAIN - No acute infarct MRA brain /neck - no flow abnormality Assessment & Plan - Code Status/Comfort Care Code Status Assessed: Yes Physician Review Additional Text: # Acute CVA - no infarct on MRI brain - symptoms may be due to metabolic encephalopathy -obtain UA - follow adjust sedatives meds and follow # HTN -controlled , BP bordelrine low -start IVF NS # DVT prop - sc heparin # GI - started on oral intake per speech eval -
--- NOTE | 2019-05-19 12:12 | EKG ---
Test Date: 2019-05-19 Test Time: 04:10:51 Unit Clerk: LUBA MEASUREMENT RESULTS: Intervals: Rate: 87 NE: 146 QRSD: 140 QT: 434 QTc: 522 [place]: P: 36 NE: 146 QRS: -11 T: 134 INTERPRETIVE STATEMENTS: Normal sinus rhythm Left bundle branch block Abnormal ECG Compared to ECG 05/19/2019 04:10:10 Atrial premature complex(es) no longer present Aberrant conduction of supraventricular beat(s) no longer present Electronically Signed On 05-19-19 12:11:32 CDT by Edenilson Pradhan
--- NOTE | 2019-05-19 12:12 | EKG ---
Test Date: 2019-05-19 Test Time: 04:10:10 Liquor Maker: LUBA MEASUREMENT RESULTS: Intervals: Rate: 86 VA: 150 QRSD: 136 QT: 426 QTc: 509 [place]: P: 31 VA: 150 QRS: -12 T: 136 INTERPRETIVE STATEMENTS: Poor data quality, interpretation may be adversely affected Sinus rhythm with premature atrial complexes with aberrant conduction Left bundle branch block Abnormal ECG Compared to ECG 04/06/2019 17:23:29 Atrial premature complex(es) now present Aberrant conduction of supraventricular beat(s) now present Electronically Signed On 05-19-19 12:11:36 CDT by Edenilson Pradhan
--- NOTE | 2019-05-19 13:31 | RAD REPORT ---
EXAM DESCRIPTION: USCarotid Artery Bilateral05/19/2019 7:57 am CLINICAL HISTORY: YAHIR-carotid artery stenosis COMPARISON: 2017 FINDINGS: The velocity of the right internal carotid artery equals 72 cm/sec. The right ICA/CCA rati o 1.1 The velocity of the left internal carotid artery equals 99 cm/sec. The left ICA/CCA ratio 1.3 left in ternal carotid Mild plaque is present within the carotid arteries. Moderate stenosis proximal right external carotid artery The vertebral arteries demonstrate antegrade flow IMPRESSION: Mild plaque within the internal carotid arteries without evidence of a hemodynamically s ignificant stenosis NASCET criteria used. Mild 0-49% stenosis Moderate 50-69% stenosis Severe 70-99% stenosis
--- NOTE | 2019-05-19 13:49 | RAD REPORT ---
EXAM DESCRIPTION: CT - Ct Stroke Brain Wo Cont - 05/19/2019 6:32 am CLINICAL HISTORY: The patient is 83 years old and is Female; WEAKNESS TECHNIQUE: Axial computed tomography images of the head/brain without intravenous contrast. Sagitt al and coronal reformatted images were created and reviewed. This CT exam was performed using one o r more of the following dose reduction techniques: automated exposure control, adjustment of the mA and/or kV according to patient size, and/or use of iterative reconstruction technique. COMPARISON: No relevant prior studies available. FINDINGS: BRAIN: There is diffuse cerebral atrophy present, consistent with this patient's age. There is patchy hypoattenuation of the deep white matter which is non-specific, but most likely owing to upl[employer] division director truman small vessel ischemic change in a patient of this age group. No intracranial hemorrhage, mass e ffect, or midline shift is seen. There are no extra-axial fluid collections. VENTRICLES: There is diffuse prominence of the ventricles, which is likely related to central at rophy. BONES/JOINTS: No acute fracture. SOFT TISSUES: Unremarkable. SINUSES: Trace amount of fluid within the right maxillary sinus is present. MASTOID AIR CELLS: Unremarkable as visualized. No mastoid effusion. ORBITS: Unremarkable as visualized. IMPRESSION: Age-related atrophy and chronic white matter ischemic changes, with no evidence of an ac eagle intracranial abnormality. THIS REPORT CONTAINS FINDINGS THAT MAY BE CRITICAL TO PATIENT CARE: The findings were verbally discussed via telephone conference with Dr. Maximiliano Nugent by Dr. Shaw Valencia on 05/19/2019 5:16 AM CDT .The results were acknowledged and understood. Electronically signed by: Becca Valencia MD 05/19/2019 5:16 AM CDT Due to temporary technical issues with the PACS/Fluency reporting system, reports are being signed by the in house radiologist as a courtesy to ensure prompt reporting. The interpreting radiologist is f ully responsible for the content of the report.
--- NOTE | 2019-05-19 13:50 | ECHO ---
HEIGHT: 5 ft 3 in WEIGHT: 170 lb 0 oz DATE OF STUDY: 05/19/[address]: Yas Darden MD 2-DIMENSIONAL: YES M.MODE: YES DOPPLER: YES COLOR FLOW: YES TDS: NO PORTABLE: NO DEFINITY: NO BUBBLE STUDY: NO DIAGNOSIS: STROKE CARDIAC HISTORY: CATHERIZATION: NO SURGERY: NO PROSTHETIC VALVE: NO PACEMAKER: NO MEASUREMENTS (cm) DIASTOLIC (NORMALS) SYSTOLIC (NORMALS) IVSd 0.9 (0.6-1.2) LA Diam 3.1 (1.9-4.0) LVEF 57% LVIDd 4.0 (3.5-5.7) LVIDs 2.8 (2.0-3.5) %FS 29% LVPWd 1.0 (0.6-1.2) Ao Diam 2.9 (2.0-3.7) 2 DIMENSIONAL ASSESSMENT: RIGHT ATRIUM: NORMAL LEFT ATRIUM: NORMAL RIGHT VENTRICLE: NORMAL LEFT VENTRICLE: NORMAL TRICUSPID VALVE: NORMAL MITRAL VALVE: NORMAL PULMONIC VALVE: NORMAL AORTIC VALVE: NORMAL PERICARDIAL EFFUSION: NONE AORTIC ROOT: NORMAL LEFT VENTRICULAR WALL MOTION: PARADOXICAL SEPTUM. DOPPLER/COLOR FLOW: MILD TRICUSPID REGURGITATION. COMMENTS: PARADOXICAL SEPTUM. NORMAL OVERALL EJECTION FRACTION. MILD TRICUSPID REGURGITATION NORMAL RIGHT VENTRICULAR SYSTOLIC PRESSURE. TECHNOLOGIST: ANA CRISTINA STAHL
[2019-05-19 14:31] LABS: Urine Appearance CLOUDY; Urine Bilirubin NEGATIVE (NEG); Urine Blood NEGATIVE (NEG); Urine Color YELLOW; Urine Glucose NEGATIVE (NEG); Urine Protein NEGATIVE (NEG); Urine Specific Gravity 1.015 (1.005-1.030); Urine Urobilinogen 0.2 mg/dL (0.2-1.0)
[2019-05-19 14:57] LABS: Urine Bacteria 20-50 /HPF (<20); Urine RBC <5 /HPF (NONE SEEN)
[2019-05-19] MEDS ORDERED: MORPHINE 2 MG/ML SYR IV PRN (15:11)
[2019-05-19] MEDS ORDERED: POTASSIUM CL SA 10 MEQ TAB PO ONE (21:00)
[2019-05-19] MEDS ORDERED: ATORVASTATIN 80 MG TAB PO SCH (21:00)
[2019-05-19] MEDS ORDERED: HYDROMORPHONE HCL 1 MG/ML INJ IV ONE (21:22)
--- NOTE | 2019-05-20 00:28 | CON ---
Date of Consultation: 05/19/2019 Reason For Consultation: Stroke-like symptoms. History: 83-year-old lady with multiple medical problems, but primarily a history of migraine headac hes which have been reasonably quiescent, severe osteoarthritis, restless legs, fibromyalgia. She wa s in her usual state of health until last night when she woke up and had difficulty speaking and left -sided weakness to arm and leg, came to the emergency department where evaluation in the ER was unrem arkable other than some left-sided weakness, she is felt to be having a stroke, but she is 83 years o ld woman and not felt to be a tPA candidate as she awoke with deficit. Since being admitted for brai n MRI, no stroke. Carotid Doppler, no hemodynamically significant stenosis. Echocardiogram. Parado xical septum with EF is 57%. EKG; she has a prolonged QTc, quite prolonged actually 522. It has bee n noted on prior EKGs and she has been advised to actually discontinue her amitriptyline as that is a known side effect of amitriptyline, but patient is not compliant with that recommendation from karina syed. Consultation was requested. Past Medical History: As alluded to. Medications: Her home medications are extensive, but of note she is on rizatriptan, topiramate, Myso line, hydralazine, Mirapex, Lyrica, amitriptyline, and Lipitor. Allergies: EXTENSIVE WELL, ADHESIVE TAPE, ASPIRIN, BUTORPHANOL, CODEINE, HYDROCODONE, LEVAQUIN, D EMEROL, PERCODAN, PENICILLIN, AND TRIAMCINOLONE. Social History: She is . She is not ambulatory. She requires assistance with activities of daily living. Family History: Noncontributory. Review of Systems: General: Chronically ill. Eyes: Denies. Ears, Nose, Throat: Dysarthria. Cardiovascular: As alluded to. Pulmonary: Negative. GI: Negative. : Negative. Musculoskeletal: Arthralgias. Neurologic: As noted. Psychiatric: Negative. Endocrine: Negative. Hematologic: Negative. Physical Examination: Vital Signs: 97.8, 85, 17, 101/48. General: She is actually a very pleasant lady lying in bed, in no distress. Heart: Sinus rhythm. No carotid bruits. Lungs: Clear. Abdomen: Soft. Bowel sounds present. HEENT: Pupils reactive. Ocular motion full. Boogie full. Facial strength and sensation normal. T ongue protrudes evenly. Soft palate elevates symmetrically bilaterally. Upper extremity strength is full. Lower extremities are 2/5, which is a chronic finding and is influenced by effort as well. S ensation; decreased left versus right, reflexes 1/4. Right toe upgoing. Cerebellar exam demonstrate s no ataxia. Patient is nonambulatory chronically. Impression: 1.Transient ischemic attack. No evidence for stroke. 2.Back and leg pain with radicular features. 3.Polypharmacy. Plan: 1.Continue Plavix and statin. 2.We will check plain films. Patient is going to speak with the attending regarding the narcotic ma nagement plan. 3.I would not restart the rizatriptan and we had issues with discontinuing medications and patient i s going to a different provider to restart, so we will need to sort through that as well, but I would favor significantly decreasing the amitriptyline as well as the primidone at the very least. Thank you for the consult. We will continue to follow with you. CHANDA Voice ID: [id number] Report ID: [id number]
[2019-05-20] MEDS ORDERED: FENTANYL CITR 100 MCG/2 ML IV ONE (06:02)
[2019-05-20 06:12] LABS: Absolute Lymphocytes (CBC) 2.1 K/uL (0.7-4.9); Basophils % 0.4 % (0-1.3); Hematocrit 35.8 % (36.0-45.0); Lymphocytes % 32.9 % (15.3-44.8); MPV 9.9 fL (7.6-11.3); RBC Red Blood Cell Count 4.03 M/uL (3.86-4.86)
[2019-05-20 06:35] LABS: Bilirubin Total 0.2 mg/dL (0.2-1.0); Magnesium 1.9 mg/dL (1.8-2.4); Phosphorus 3.1 mg/dL (2.5-4.9); Potassium 4.2 mmol/L (3.5-5.1); Protein, Total 5.8 g/dL (6.4-8.2)
[2019-05-20] MEDS: ENOXAPARIN 40 MG/0.4 ML SQ SCH (09:32)
[2019-05-20] MEDS: CLOPIDOGREL 75 MG TABLET PO SCH (09:32)
[2019-05-20 09:49] VITALS: O2SAT 96
[2019-05-20] MEDS: NA CHLORIDE 0.9% 1,000 ML IV SCH (10:08)
--- NOTE | 2019-05-20 10:23 | RAD REPORT ---
EXAM DESCRIPTION: RAD - Lumbar Spine 3 Views - 05/20/2019 10:12 am CLINICAL HISTORY: Back pain FINDINGS: Moderate anterior subluxation L5 on S1 with marked disc space narrowing Alignment of the remainder of the lumbar spine is satisfactory. No fracture Osteoporosis. Osteoarthritis involves the facet joints of lower lumbar spine . Lyhk-ak-duwzpzjg scoliosis
--- NOTE | 2019-05-20 10:24 | RAD REPORT ---
EXAM DESCRIPTION: RAD - Hip Left 2 View - 05/20/2019 10:12 am CLINICAL HISTORY: Left hip pain FINDINGS: No fracture or dislocation is seen. Mild to moderate joint space narrowing. Osteoporosis
[2019-05-20] MEDS ORDERED: HYDROMORPHONE HCL 1 MG/ML INJ IV PRN (10:26)
--- NOTE | 2019-05-20 11:54 | P.DS ---
Admission Date: 05/19/19 Discharge Date: 05/20/19 Disposition: DC HOME/HOME HEALTH CARE Discharge Condition: FAIR Reason for Admission: slurred speech Brief History of Present Illness: Patient admitted for presumed CVA. Hospital Course: Patient on admission had MRI brain/MRA head and neck which show negative for any acute infarcts or flow abnormality. She also had a carotid ultrasound shows no evidence of stenosis.. She had an echocardiogram go done with normal EF of 57% both noted with paradoxical septum. She was noted on EKG to have prolonged QTC as well as left bundle branch block. He etiology of prolonged QTC was felt to be due to amitriptyline which has previously be recommended for patient to be discontinued. Amitriptyline was held during hospitalization. She was evaluated by the neurology-Dr. Lainez . Patient continued to complain of multiple body pains especially over the back and the right lower extremity. She had x-ray of the lumbar spine as well as right hip done with findings of moderate osteoarthritis and now might and treat space narrowing but no acute fracture. She continued to request pain medication repeatedly specifically asking for Dilaudid which spouse had on a a written paper they presented to our medical team. Although did well unable to tell if patient was already taking it at home. Patient have weakness which appears to be improving although she was non ambulator tree. There was no evidence of CVA. Patient will be discharged home today to continue home PT. She has been advised to follow with her PCP for outpatient medication management for pain control Vital Signs/Physical Exam: Temp Pulse Resp BP Pulse Ox 98.3 F 89 18 123/58 L 96 05/20/19 08:00 05/20/19 08:00 05/20/19 11:19 05/20/19 08:00 05/20/19 11:19 General: Alert, In no apparent distress, Oriented x3 HEENT: Atraumatic, Normocephalic, PERRLA Neck: Supple, 2+ carotid pulse no bruit, JVD not distended Respiratory: Clear to auscultation bilaterally, Normal air movement Cardiovascular: No edema, Normal pulses, Regular rate/rhythm, Normal S1 S2 Gastrointestinal: Normal bowel sounds, Soft and benign, Non-distended Musculoskeletal: No clubbing, No swelling Neurological: Normal speech, Abnormal strength (3/5 LE -symmetrical ) Laboratory Data at Discharge: WBC 6.4 K/uL (4.3-10.9) 05/20/19 05:32 Hgb 11.8 g/dL (12.0-15.0) L 05/20/19 05:32 Hct 35.8 % (36.0-45.0) L 05/20/19 05:32 Plt Count 128 K/uL (152-406) L 05/20/19 05:32 PT 11.5 SECONDS (9.5-12.5) 05/19/19 05:04 INR 0.97 05/19/19 05:04 APTT 30.7 SECONDS (24.3-36.9) 05/19/19 05:04 Sodium 140 mmol/L (136-145) 05/20/19 05:32 Potassium 4.2 mmol/L (3.5-5.1) 05/20/19 05:32 BUN 13 mg/dL (7-18) 05/20/19 05:32 Creatinine 0.67 mg/dL (0.55-1.3) 05/20/19 05:32 Glucose 98 mg/dL (74-106) 05/20/19 05:32 Phosphorus 3.1 mg/dL (2.5-4.9) 05/20/19 05:32 Magnesium 1.9 mg/dL (1.8-2.4) 05/20/19 05:32 Total Bilirubin 0.2 mg/dL (0.2-1.0) 05/20/19 05:32 AST 21 U/L (15-37) 05/20/19 05:32 ALT 17 U/L (12-78) 05/20/19 05:32 Alkaline Phosphatase 61 U/L (45-117) 05/20/19 05:32 Triglycerides 137 mg/dL (<150) 05/20/19 05:32 Cholesterol 117 mg/dL (<200) 05/20/19 05:32 HDL Cholesterol 55 mg/dL (40-60) 05/20/19 05:32 Cholesterol/HDL Ratio 2.13 05/20/19 05:32 Lipase 186 U/L (73-393) 05/19/19 05:04 Home Medications: Atorvastatin Calcium [Lipitor] 80 mg PO BEDTIME 05/19/19 Calcium Carbonate [Calcium] 600 mg PO DAILY 05/19/19 Cholecalciferol (Vitamin D3) [Vitamin D3] 2,000 unit PO DAILY 05/19/19 Cyanocobalamin (Vitamin B-12) [Vitamin B12] 2,500 mcg PO DAILY 05/19/19 Dexlansoprazole [Dexilant] 60 mg PO DAILY 05/19/19 Fesoterodine Fumarate [Toviaz] 1 tab PO DAILY 05/19/19 Fluticasone [Flonase 50MCG Nasal [place]*] 2 sprays NS BID PRN 05/19/19 Hydralazine [Apresoline*] 25 mg PO BID PRN 05/19/19 Losartan Potassium 100 mg PO DAILY 05/19/19 Oxybutynin Chloride [Oxybutynin Chloride ER] 5 mg PO DAILY 05/19/19 Potassium Gluconate [Potassium] 99 mg PO DAILY 05/19/19 Pramipexole [Mirapex*] 0.25 mg PO BID 05/19/19 Pregabalin [Lyrica*] 75 mg PO BID 05/19/19 Primidone [Mysoline *] 250 mg PO BEDTIME 05/19/19 Rizatriptan Benzoate [Rizatriptan] 10 mg PO DAILY 05/19/19 Topiramate [Topamax*] 100 mg PO DAILY 05/19/19 Diet: Regular Activity: Ad rangel Followup: Carlos Eduardo Lainez MD [ACTIVE - CAN ADMIT] -
[2019-05-20 13:24] VITALS: BP 142/67; TEMP 99.2
[2019-05-20] MEDS ORDERED: PREGABALIN 75 MG CAP PO SCH (21:22)
--- NOTE | 2019-05-25 04:59 | P.HP ---
Certification for Inpatient Patient admitted to: Observation With expected LOS: <2 Midnights Patient will require the following post-hospital care: None Practitioner: I am a practitioner with admitting privileges, knowledge of patient current condition, hospital course, and medical plan of care. Services: Services provided to patient in accordance with Admission requirements found in Title 42 Section 412.3 of the Code of Federal Regulations Patient History Date of Service: 05/19/19 Reason for admission: APHASIA/LEFT-SIDED WEAKNESS History of Present Illness: PATIENT IS A 83-YEAR-OLD FEMALE CAME INTO THE HOSPITAL WITH WEAKNESS OF THE LEFT ARM AND LEG. SHE HAD WOKE UP AROUND 2 O'CLOCK WITH THESE SYMPTOMS. HER SPEECH WAS ALSO SLURRED. SHE SPOKE WITH HER WHO ADVISED HER TO COME INTO THE EMERGENCY ROOM FOR FURTHER EVALUATION. IN THE ER HER INITIAL CT SCAN IS NEGATIVE. HER SYMPTOMS ARE NOT REALLY CONSISTENT ON EXAM. SHE DOES HAVE SOME WEAKNESS ON THE LEFT SIDE BUT HER SPEECH IS WITHIN NORMAL LIMITS. HER COMPREHENSION AND HER VOCALIZATION IS INTACT. SHE HAS NO OTHER NEUROLOGIC FINDINGS. SHE HAS NOT WALKED SINCE INJURING HERSELF. SHE WILL BE ADMITTED TO THE HOSPITAL FOR FURTHER EVALUATION. Allergies adhesive tape Allergy (Verified 05/19/19 12:03) pulls skin off aspirin [From Percodan] Allergy (Verified 05/19/19 12:03) Hives/Rash, facial swelling buprenorphine [From Subutex] Allergy (Verified 05/19/19 12:03) SOB, altered memory and balance codeine Allergy (Verified 05/19/19 12:03) Nausea/Vomiting hydrocodone Allergy (Verified 05/19/19 12:03) Nausea/Vomiting levofloxacin [From Levaquin] Allergy (Verified 05/19/19 12:03) Hives/Rash meperidine [From Demerol] Allergy (Verified 05/19/19 12:03) unconsciousness oxycodone [From Percodan] Allergy (Verified 05/19/19 12:03) Hives/Rash, facial swelling Penicillins Allergy (Verified 05/19/19 12:03) Anaphylaxis triamcinolone [From Kenalog] Allergy (Verified 05/19/19 12:03) thrush Home Medications: Atorvastatin Calcium [Lipitor] 80 mg PO BEDTIME 05/19/19 Calcium Carbonate [Calcium] 600 mg PO DAILY 05/19/19 Cholecalciferol (Vitamin D3) [Vitamin D3] 2,000 unit PO DAILY 05/19/19 Cyanocobalamin (Vitamin B-12) [Vitamin B12] 2,500 mcg PO DAILY 05/19/19 Dexlansoprazole [Dexilant] 60 mg PO DAILY 05/19/19 Fesoterodine Fumarate [Toviaz] 1 tab PO DAILY 05/19/19 Fluticasone [Flonase 50MCG Nasal [place]*] 2 sprays NS BID PRN 05/19/19 Hydralazine [Apresoline*] 25 mg PO BID PRN 05/19/19 Losartan Potassium 100 mg PO DAILY 05/19/19 Oxybutynin Chloride [Oxybutynin Chloride ER] 5 mg PO DAILY 05/19/19 Potassium Gluconate [Potassium] 99 mg PO DAILY 05/19/19 Pramipexole [Mirapex*] 0.25 mg PO BID 05/19/19 Pregabalin [Lyrica*] 75 mg PO BID 05/19/19 Primidone [Mysoline *] 250 mg PO BEDTIME 05/19/19 Rizatriptan Benzoate [Rizatriptan] 10 mg PO DAILY 05/19/19 Topiramate [Topamax*] 100 mg PO DAILY 05/19/19 - Past Medical/Surgical History Has patient received pneumonia vaccine in the past: Yes Diabetic: No -: Osteoporosis -: Heart Block -: Fractured R hip -: Fibrocystic disease -: Julio César Ankle broken -: Arthritis R hand -: Appendectomy -: Julio César Mastectomy -: R Hip sx -: Hammer Toe sx - Family History Mother Medical History: Diabetes Father Medical History: Lung disease, Cancer Notes: Lung Cancer - Social History Smoking Status: Former smoker Alcohol use: No CD- Drugs: No Caffeine use: Yes Place of Residence: Home Review of Systems 10-point ROS is otherwise unremarkable Physical Examination - Vital Signs Temperature: 99.2 F Blood Pressure: 142/67 Pulse: 91 Respirations: 18 Pulse Ox (%): 90 - Physical Exam General: Alert, In no apparent distress, Oriented x3 HEENT: Atraumatic, PERRLA, Mucous membr. moist/pink, EOMI, Sclerae nonicteric Neck: Supple, 2+ carotid pulse no bruit, No LAD, Without JVD or thyroid abnormality Respiratory: Clear to auscultation bilaterally, Normal air movement Cardiovascular: Regular rate/rhythm, Normal S1 S2, No murmurs Gastrointestinal: Normal bowel sounds, Soft and benign, Non-distended, No tenderness Musculoskeletal: No clubbing, No swelling, No tenderness Integumentary: No rashes Neurological: Normal gait, Normal speech, Normal strength at 5/5 x4 extr, Normal tone, Sensation intact, Cranial nerves 3-12 intact, Normal affect Lymphatics: No axilla or inguinal lymphadenopathy Assessment & Plan - Problems (Diagnosis) (1) Left-sided weakness Status: Acute (2) Aphasia Status: Acute (3) Bilateral ankle fractures Status: Acute (4) Prolonged immobilization Status: Acute (5) Chronic pain syndrome Status: Acute (6) HTN (hypertension) Status: Acute - Plan PLAN: 1. MRI OF THE BRAIN 2. CAROTID DOPPLER 3. ECHOCARDIOGRAM 4. LIPID PROFILE 5. PT EVAL AND SPEECH THERAPY EVAL 6. SWALLOW EVAL 7. DVT PROPHYLAXIS 8. NEUROLOGY CONSULTATION 9. GI AND DVT PROPHYLAXIS Discharge Plan: Home Plan to discharge in: 48 Hours - Advance Directives Does patient have a Living Will: No Does patient have a Durable POA for Healthcare: No - Code Status/Comfort Care Code Status Assessed: Yes Code Status: Full Code Critical Care: No Time Spent Managing PTS Care (In Minutes): 45
== END 2019-05-20 15:49 | disposition home health service (06) ==
LOC: ER 04:42 → OBSVTOIN 07:05 → INTOOBSV 07:05 → ERHOLD 07:05 → 4TH 10:25
PROVIDERS: ADMIT Hospitalist; ATTEND Internal Medicine
DX: G45.9 Transient cerebral ischemic attack, unspecified (principal); R47.01 Aphasia; R53.1 Weakness; R29.705 NIHSS score 5; I65.23 Occlusion and stenosis of bilateral carotid arteries; I07.1 Rheumatic tricuspid insufficiency; I44.7 Left bundle-branch block, unspecified; I49.1 Atrial premature depolarization; M81.0 Age-related osteoporosis without current pathological fracture; M41.87 Other forms of scoliosis, lumbosacral region; G31.1 Senile degeneration of brain, not elsewhere classified; G89.4 Chronic pain syndrome; I10 Essential (primary) hypertension; M19.91 Primary osteoarthritis, unspecified site; M79.7 Fibromyalgia; G25.81 Restless legs syndrome; Z79.899 Other long term (current) drug therapy; Z87.891 Personal history of nicotine dependence
CPT/HCPCS: 93005 ×2; 93306; 87088; 85025 ×2; 81001; 87086; 80048; 36415 ×2; 83735 ×2; 82550; 84100; 85610; 80061; 80076; 85730; 84484; 82553; 83690; 80053; 70450; 71045; 72100; 73502; 93880; 70553; 70544; 70549; 92610; 97112; 97163; 97530; 96375; 96374; 99285; A9577; J1650 ×2; J3010; J2270 ×2; J1170 ×2; J7030 ×3; G0378 ×3

== ENCOUNTER 2020-02-11 16:36 | Observation (INO) | payer OTHER ==
--- OUTSIDE RECORDS SUMMARY | 2020-02-11 16:38 | XMS REPORT | Clinical Summary ---
:1935 Author Organization [facility] Address [address] [place] [address] Care Team Providers Name Role Phone Shaquille Gaming MD, Landon Primary Care Provider Allergies Active Allergy Reactions [...] Active extract 120 mg capsule mouth. rizatriptan MANAGER LAB Take 10 mg by 0 Active (MAXALT-MANAGER [facility]) 10 MG mouth once as disintegrating tablet needed for migraine. May repeat in 2 hours if unresolved. Do not exceed 30 mg in 24 hours. Active Problems Problem Noted Date Carotid stenosis, left 12/28/2016 Surgical History Surgery Date Site/Laterality Comments TONSILECTOMY, ADENOIDECTOMY, BILATERAL MYRINGOTOMY AND TUBES HYSTERECTOMY HIP SURGERY Right MASTECTOMY WRIST FRACTURE SURGERY CORRECTION HAMMER TOE APPENDECTOMY CATARACT EXTRACTION 11/09/2016 - Right 12/08/2016 ENDARTERECTOMY, CAROTID 12/28/2016 Neck/Left Procedur e: LEFT CAROTID ENDARTERECTOMY; Surgeon: Armin Iverson MD; Location: [facility]; Service: Cardiothoracic; Laterality: Left ; Medical devices from this surgery are in the Implants section . Medical History Medical History Date Comments Hypertension Migraine Osteoarthritis AI (aortic insufficiency) Mild COPD (chronic obstructive pulmonary disease) (HCC) Shortness of breath WITH EXERTION. USES CANE AND WHEELCHAIR FOR LONG DISTANCE Osteoporosis advanced progressive osteoporosis Dizziness gets dizzy couple da ys a week. GERD (gastroesophageal reflux disease) Cunningham esophagus Hearing impaired left ear. no hearing aides Full dentures PONV (postoperative nausea and vomiting) with demerol after surgery Anesthesia NHAP/NFHAP. denies c hest pain. SOB with exertion Family History Medical History Relation Name Comments [...] Assigned at Date Recorded Not on file Last Filed Vital Signs Not on file Plan of Treatment Health Maintenance Due Date Last Done Comments SHINGLES VACCINES (#1) 06/30/1987 65+ PNEUMOCOCCAL VACCINE (1 of 1 - PPSV23) 2002 INFLUENZA VACCINE 10/10/2019 Implants Implanted Type Area Concessionist Device Shelf Model / Identifier Expiration Serial / Lot Date Clip Ligtng Weck Hemoclip Plus W/ Tape Ti Strngpnt - [id number] Medical N/A: WECK CLOSURE [id number] / Implanted: 12/28/2016 at [facility] (Quantity not on file) Cli ps for N/A SYSTEMS / Internal Use Clip Ligtng Weck Hemoclip Plus W/ Tape Ti Med - [id number] Medical N/A: TELEFLEX [id number] / Implanted: 12/28/2016 at [facility] (Quantity not on file) Cli ps for N/A MEDICAL / Internal Use Kit Shunt Crtd Artery Rdopq Line 6in Strl Walker - [id number] Jannie gical N/A: COVIDISINGH ALVARADOAL 06/09/2019 [id number] / Implanted: 12/28/2016 at [facility] (Quantity not on file) Imp lants; N/A HEALTHCARE / Expanders; [id number] Extenders; Surgical Wires Patch Vasclr Perph 0.8x8cm Vascu-Guard - [id number] Vascular N/A: GARCIA 06/18/2021 [id number] / Implanted: 12/28/2016 at [facility] (Quantity not on file) Gra ft N/A BIOSCIENCE / [id number] Results Not on fileafter 02/10/2019 Advance Directives For more information, please contact: [phone] Type Date Recorded Patient Snapper On Explanati on Advance Directives, Living Will and Medical Power of Career Development Director Advance Directives, 01/01/2017 9:47 AM Living Will and Medical Power of Career Development Director
--- OUTSIDE RECORDS SUMMARY | 2020-02-11 16:38 | XMS REPORT | Continuity of Care Document ---
:1935 Author Organization [facility] t Address [facility] [address] [place] [address] Care Team Providers Name Role Phone Shaquille Gaming MD Primary Care Physician Doctor Unassigned, Name Attending Clinician Unavailable Zo LARRY, L Attending Clinician Problems Condition Condition Condition Status Onset Resolution Last Treating Co mments Source Name Details Category Date Date Treatment Clinician Date Carotid Carotid Disease Active 2016-03 [place] stenosis, stenosis, 0-20 Meth nadya left left 00:00: st 00 Allergies, Adverse Reactions, Alerts Allergy Allergy Status Severity Reaction(s) Onset Inactive Treating Comm ents Source Name Type Date Date Clinician Adhesive Propensi Active 2016-03 [place] Tape-Amita ty to 0-10 [facility] icones adverse 00:00: st reaction 00 s to drug Buprenor Propensi Active 2016-03 [place] phine ty to 0-10 [facility] adverse 00:00: st reaction 00 s to drug Codeine Propensi Active 2016-03 [place] ty to 0-10 [facility] adverse 00:00: st reaction 00 s to drug Meperidi Propensi Active 2016-03 [place] ne ty to 0-10 [facility] adverse 00:00: st reaction 00 s to drug Triamcin Propensi Active 2016-03 [place] olone ty to 0-10 [facility] Acetonid adverse 00:00: st e reaction 00 s to drug Levoflox Propensi Active 2016-03 [place] acin ty to 0-10 [facility] adverse 00:00: st reaction 00 s to drug Penicill Propensi Active 2016-03 [place] ins ty to 0-10 [facility] adverse 00:00: st reaction 00 s to drug Oxycodon Propensi Active 2016-03 [place] e-Aspiri ty to 0-10 [facility] n adverse 00:00: st reaction 00 s to drug Wasp Propensi Active 2016-03 Deng Venom ty to 0-10 [facility] adverse 00:00: st reaction 00 s to drug Family History Family Member Diagnosis Comments Start Date Stop Date Source Natural father Cancer [place] [facility] Natural father Heart disease [place] [facility] Natural father Lung disease [place] [facility] Natural mother Cancer [place] [facility] Natural mother Lung disease [place] [facility] Natural son Cancer [place] [facility] Natural son Lung disease [place] [facility] Social History Social Habit Start Date Stop Date Quantity Comments Source History of Current smoker [facility]odist tobacco use Sex Assigned At [facility] Tobacco use and 2017-01-01 2017-01-01 Never used [facility] exposure 00:00:00 00:00:00 Alcohol intake 2017-01-01 2017-01-01 Current [facility]odist 00:00:00 00:00:00 non-drinker of alcohol (finding) Tobacco Comment 2016-12-18 2016-12-18 2PPd until 1991 [place] [facility] 00:00:00 00:00:00 Smoking Status Start Date Stop Date Source Former smoker 2017-01-01 00:00:00 2017-01-01 00:00:00 [facility] Medications Ordered Filled Start Stop Current Ordering Indication Dosage Frequency Signature Comments Components Source Medication Medication Date Date Medication? Clinician (SIG) Name Name dexlansopra 2016-03 Yes 60mg QD Take 60 mg [place] zole 0-22 by mouth [facility] (DEXILANT) 14:36: every st 60 mg 24 morning. capsule hyoscyamine 2016-03 Yes 1{tbl} Q.5D Take 1 [place] sulfate 0-22 tablet by [facility] 0.125 mg 14:36: mouth 2 st tablet,disi 24 (two) ntegrating times a day. cholecalcif 2016-03 Yes 2000U QD Take 2,000 Deng breonna, 0-22 Units by [facility] vitamin D3, 14:36: mouth st (VITAMIN 24 daily. D3) 2,000 unit capsule capsule CALCIUM 2016-03 Yes 600mg QD Take 600 [place] CARBONATE 0-22 mg by [facility] (CALCIUM 14:36: mouth st 600 ORAL) 24 daily. ginkgo 2016-03 Yes 120mg Take 120 [place] leaf 0-22 mg by [facility] extract 120 14:36: mouth. st mg capsule 24 rizatriptan 2016-03 Yes 10mg Take 10 mg Deng FAMILY LAWYER 0-22 by mouth [facility] (MAXALT-FAMILY LAWYER 14:36: once as st ) 10 MG 24 needed for disintegrat migraine. ing tablet May repeat in 2 hours if unresolved . Do not exceed 30 mg in 24 hours. losartan 2016-03 Yes 50mg QD 50 mg Ish (COZAAR) 50 0-08 every [facility] MG tablet 00:00: morning. st 00 LYRICA 75 Yes Q12H every 12 [place] mg capsule 11-16 (twelve) Metho di 00:00: hours as st 00 needed. pramipexole Yes .25mg QD 0.25 mg Monty keene (MIRAPEX) 11-16 nightly. Method i 0.25 MG 00:00: st tablet 00 amitriptyli Yes QD nightly. Monty keene ne (ELAVIL) 11-16 Method[facility] 50 MG 00:00: st tablet 00 fluticasone Yes 2{spray QD 2 sprays Ish (FLONASE) 11-16 } by Each Methodi 50 00:00: Nare route st mcg/actuati 00 daily. on nasal spray topiramate 2016-0 Yes QD nightly. Angelique ston (TOPAMAX) 8-10 [facility] 100 MG 00:00: st tablet 00 primidone Yes 250mg Q.5D Take 250 Angelique ston (MYSOLINE) 8-09 mg by [facility] 250 MG 00:00: mouth 2 st tablet 00 (two) times a day. furosemide Yes 40mg QD 40 mg Bonillato n (LASIX) 40 7-27 every [facility] mg tablet 00:00: morning. st 00 Procedures This patient has no known procedures. Plan of Care Planned Activity Planned Date Details Comments Source Future Scheduled 2019-10-10 INFLUENZA VACCINE Omar desai [facility] 00:00:00 [code = INFLUENZA VACCINE] Future Scheduled 2002 65+ PNEUMOCOCCAL Ish [facility] Test 00:00:00 VACCINE (1 of 1 - PPSV23) [code = 65+ PNEUMOCOCCAL VACCINE (1 of 1 - PPSV23)] Future Scheduled 1987-06-30 SHINGLES VACCINES (#1) H jorge luis [facility]into Test 00:00:00 [code = SHINGLES VACCINES (#1)] Encounters Start End Encounter Admission Attending Care Care Encounter Source Date/Time Date/Time Type Type Clinicians Facility Department ID 2020-01-18 2020-01-18 Orders Doctor ORTIZ [id number] 00:00:00 00:00:00 Only Unassigned, EAN [id number] [place] [facility] [id number] [id number] 2019-12-31 2019-12-31 Telephone CONNIE Pathak [id number] 00:00:00 00:00:00 [facility] [id number] Surgical [id number] Special [id number] [address] 2019-12-01 2019-12-01 Orders Doctor DIANA [id number] 00:00:00 00:00:00 Only Unassigned, EAN [id number] [place] [facility] [id number] [id number] 2019-05-04 2019-05-04 Orders Doctor DIANA [id number] 00:00:00 00:00:00 Only Unassigned, EAN [id number] [place] [facility] [id number] [id number] 2019-04-15 2019-04-15 Orders Doctor ORTIZ [id number] 00:00:00 00:00:00 Only Unassigned, EAN [id number] [place] [facility] [id number] [id number] Results This patient has no known results.
--- OUTSIDE RECORDS SUMMARY | 2020-02-11 16:38 | XMS REPORT | Summary of Care ---
:1935 Author Organization [facility] - Health Address [address] [place] [address] Care Team Providers Name Role Phone Leroy Carson Primary Care Provider Encounter Details Date Type Department Care Team Description 12/01/2019 Orders Only [facility] Doctor Unassigned, No [address] [facility] [place] [address] [address] [place] [address] Allergies Active Allergy Reactions Severity Noted Date Comments Adhesive Rash Low 08/25/2014 Tape-Silicones Buprenorphine Rash 12/18/2016 Codeine Nausea and/or Medium 08/25/2014 Vomiting Meperidine Hcl Nausea and/or High 08/25/2014 First time r eceived - Vomiting, Rash, rash and luba sea Other - See comments Second time received - unconsciousness for 48 hours Hydrocodone Nausea and/or Medium 08/25/2014 Vomiting Triamcinolone Other - See comments Medium 08/25/2014 Thrush in mouth Acetonide Levofloxacin Hives, Rash Medium 08/25/2014 Meperidine Rash 12/18/2016 Benzocaine Other - See comments Medium 08/25/2014 Thrush in mouth Oxycodone-Aspirin Rash 12/18/2016 Penicillins Anaphylaxis, Rash High 08/25/2014 Oxycodone Rash, Swelling High 08/25/2014 Hpo-Ayxajfxsx-Drq Sansert Rash Medium 08/25/2014 Rash progressin g to large raised ar eas that appear "burned" Buprenorphine Hcl Dizziness, Shortness Medium 08/25/2014 of Breath Venom-Wasp Anaphylaxis High 08/25/2014 documented as of this encounter (statuses as of 12/02/2019) Medications Medication Sig Dispensed Refills Start Date [...] Take 1 tablet by 14 tablet 0 03/09/20 19 Active 4 mg disintegrating mouth every 8 tabletIndications: Cough (eight) hours as needed for Nausea and Vomiting (N/V). documented as of this encounter (statuses as of 12/02/2019) Active Problems No known active problemsdocumented as of this encounter (statuses as of 12/02/2019) Social History Tobacco Use Types Packs/Day Years Used Date Never Smoker Smokeless Tobacco: Never Used Alcohol Use Drinks/Week oz/Week Comments No Sober X 13 years Sex Assigned at Date Recorded Not on file documented as of this encounter Last Filed Vital Signs Not on filedocumented in this encounter Plan of Treatment Health Maintenance Due Date Last Done Comments Depression Screening 1947 DTaP,Tdap,and Td Vaccines (1 - Tdap) 1956 Zoster Recombinant Vaccine (SHINGRIX) (1 of 2) 06/30/1987 Medicare Wellness Visit 2002 Osteoporosis Screening 2002 PNEUMOCOCCAL VACCINES 65+ (1 of 1 - PPSV23) 2002 INFLUENZA VACCINE (#1) 2019 documented as of this encounter Procedures Procedure Name Priority Date/Time Associated Diagnosis Comme nts MEDICATION CORRESPONDENCE Routine 12/01/2019 12:01 AM CDT documented in this encounter Results Not on filedocumented in this encounter Insurance Payer Benefit Plan / Subscriber ID Effective Phone Address T ype Group Dates [facility] [id number] 2018-Prese Medic are Adv MEDICARE NON MEDICARE NON nt PPO CONTRACTED CONTRACTED [facility] [place] [facility] [place] PITA [id number] 2019-Pre Medicare Adv PLUS PLUS sent HMO CLASSIC/VALUE documented as of this encounter
--- OUTSIDE RECORDS SUMMARY | 2020-02-11 16:39 | XMS REPORT | Summary of Care ---
:1935 Author Organization [facility] Address [address] [place] [id number] Care Team Providers Name Role Phone Leroy Carson Primary Care Provider Reason for Visit Reason Comments Notification Encounter Details Date Type Department Care Team Description 12/31/2019 Telephone [facility] Orthopaedic Momo Pathak MD Notification Surgery- [place] [address], [place], [address] [place] [address] [address] [place], [place] [phone] Allergies Active Allergy Reactions Severity Noted Date [...] High 08/25/2014 Oxycodone Rash, Swelling High 08/25/2014 Sqm-Sgckwqxfj-Nev Sansert Rash Medium 08/25/2014 Rash progressin g to large raised ar eas that appear "burned" Buprenorphine Hcl Dizziness, Shortness Medium 08/25/2014 of Breath Venom-Wasp Anaphylaxis High 08/25/2014 documented as of this encounter (statuses as of 12/31/2019) Medications Medication Sig Dispensed Refills Start Date [...] as of this encounter (statuses as of 12/31/2019) Active Problems No known active problemsdocumented as of this encounter (statuses as of 12/31/2019) Social History Tobacco Use Types Packs/Day Years Used Date Never Smoker Smokeless Tobacco: Never Used Alcohol Use Drinks/Week oz/Week Comments No Sober X 13 years Sex Assigned at Date Recorded Not on file documented as of this encounter Last Filed Vital Signs Not on filedocumented in this encounter Miscellaneous Notes Telephone Encounter - Sabine Guerra - 12/31/2019 4:27 PM CDTCalled patient and she understood. Sabine Guerra 12/31/2019 4:27 PM elephone Encounter - John Mcginnis PAC - 12/31/2019 4:08 PM CDTStart with your PCP she may need to see a spine doctor elephone Encounter - Freida Robin - 12/31/2019 12:10 PM CDTPatient called stating that she has osteoporosis and her hip all the way down her left leg is severepain. Is this something Dr. Pathak can treat for and if not who could we refer her too? documented in this encounter Plan of Treatment Health Maintenance Due Date Last Done Comments Depression Screening 1949 DTaP,Tdap,and Td Vaccines (1 - Tdap) 1956 Zoster Recombinant Vaccine (SHINGRIX) (1 of 2) 06/30/1987 Medicare Wellness Visit 2002 Osteoporosis Screening 2002 PNEUMOCOCCAL VACCINES 65+ (1 of 1 - PPSV23) 2002 INFLUENZA VACCINE (#1) 2019 documented as of this encounter Results Not on filedocumented in this encounter Insurance Payer Benefit Plan / Subscriber ID Effective Phone Address T ype Group Dates [facility] [id number] 2018-Prese Medic are Adv MEDICARE NON MEDICARE NON nt PPO CONTRACTED CONTRACTED [facility] PITA [facility] PITA [id number] 2019-Pre Medicare Adv PLUS PLUS sent HMO CLASSIC/VALUE documented as of this encounter
--- OUTSIDE RECORDS SUMMARY | 2020-02-11 16:39 | XMS REPORT | Summary of Care ---
:1935 Author Organization [facility] Address [address] [place] [address] Care Team Providers Name Role Phone Leroy Carson Primary Care Provider Encounter Details Date Type Department Care Team Description 01/18/2020 Orders Only [facility] Doctor Unassigned, No [address] [facility] [place] [address] [address] [place] [address] Allergies Active Allergy Reactions Severity Noted Date [...] High 08/25/2014 Oxycodone Rash, Swelling High 08/25/2014 Akd-Xhowzdyyr-Knb Sansert Rash Medium 08/25/2014 Rash progressin g to large raised ar eas that appear "burned" Buprenorphine Hcl Dizziness, Shortness Medium 08/25/2014 of Breath Venom-Wasp Anaphylaxis High 08/25/2014 documented as of this encounter (statuses as of 01/19/2020) Medications Medication Sig Dispensed Refills Start Date [...] as of this encounter (statuses as of 01/19/2020) Active Problems No known active problemsdocumented as of this encounter (statuses as of 01/19/2020) Social History Tobacco Use Types Packs/Day Years [...] Name Priority Date/Time Associated Diagnosis Comme nts HOME HEALTH - OTHER Routine 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 [id number] 2018-Prese Medic are Adv MEDICARE NON MEDICARE NON nt PPO CONTRACTED CONTRACTED [facility] PITA [facility] PITA [id number] 2019-Pre Medicare Adv PLUS PLUS sent HMO CLASSIC/VALUE documented as of this encounter
--- NOTE | 2020-02-11 18:28 | RAD REPORT ---
EXAM DESCRIPTION: [place] Single View02/11/2020 5:48 pm CLINICAL HISTORY: Chest pain COMPARISON: May 2019 FINDINGS: The lungs appear clear of acute infiltrate. The heart is normal size IMPRESSION: No acute abnormalities displayed
--- NOTE | 2020-02-11 18:35 | RAD REPORT ---
EXAM DESCRIPTION: USExtrem Venous W Compress Bil02/11/2020 6:26 pm CLINICAL HISTORY: Bilateral leg swelling COMPARISON: none FINDINGS: The common femoral, superficial femoral, popliteal and posterior tibial veins bilaterally are compressible and demonstrate augmentation. Doppler demonstrates good flow. IMPRESSION: No evidence of deep venous thrombosis involving either lower extremity.
[2020-02-11 20:18] LABS: Absolute Lymphocytes (CBC) 1.4 K/uL (0.7-4.9); Basophils % 0.9 % (0-1.3); Hematocrit 46.1 % (36.0-45.0); Lymphocytes % 29.4 % (15.3-44.8); MPV 9.8 fL (7.6-11.3); RBC Red Blood Cell Count 5.21 M/uL (3.86-4.86)
[2020-02-11] MEDS ORDERED: KETOROLAC 30 MG/ML INJ ONE (20:24)
[2020-02-11 20:34] LABS: Protime INR 1.06
[2020-02-11 20:36] LABS: ALT/SGPT 22 U/L (12-78); AST/SGOT 23 U/L (15-37); Albumin 3.8 g/dL (3.4-5.0); Alkaline Phosphatase 86 U/L (45-117); BUN Blood Urea Nitrogen 8 mg/dL (7-18); Bicarbonate 28 mmol/L (21-32); Bilirubin Direct 0.1 mg/dL (0-0.2); Bilirubin Total 0.3 mg/dL (0.2-1.0); Glucose Level 99 mg/dL (74-106); Magnesium 2.1 mg/dL (1.8-2.4); NT PRO-BNP 545 pg/mL (<450); Potassium 3.6 mmol/L (3.5-5.1); Protein, Total 7.5 g/dL (6.4-8.2); Sodium Level 142 mmol/L (136-145); Troponin (Emerg Dept Use Only) < 0.02 ng/mL (0.0-0.045)
--- NOTE | 2020-02-11 21:10 | ER ---
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 a home health nurse suggested that she take her oxygen level and it came out to be 85 % at home. the pt does not normally wear oxygen at home normally. no fever or any other symptoms reported other than the shortness of breath and low oxygen. we placed her on 4 L nasal canula O 2 and her oxygen level improved to 95-96%. the pt reported feeling instantly better. 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 Coronavirus screen: shortness of breath, Client presents with at least one sign or symptom that may indicate coronavirus-19. Standard/surgical mask placed on the client. Provider contacted for isolation considerations. Ebola Screen: Patient negative for fever greater than or equal to 101.5 degrees Fahrenheit, and additional compatible Ebola Virus Disease symptoms. Initial Sepsis Screen: Does the patient meet any 2 criteria? No. Patient's initial sepsis screen is negative. Does the patient have a suspected source of infection? No. Patient's initial sepsis screen is negative. Risk Assessment: Do you want to hurt yourself or someone else? Patient reports no desire to harm self or others. Onset of symptoms was February 11, 2020. 16:47 Method Of Arrival: EMS: [facility] jd3 16:47 Acuity: BA 3 jd3 Historical: - Allergies: 17:00 Adhesives; jd3 17:00 Codeine; jd3 17:00 Demerol; jd3 17:00 gnats; jd3 17:00 Levaquin; jd3 17:00 Kenalog; jd3 17:00 Hydrocodone-Acetaminophen; jd3 17:00 Orabase (benzocaine); jd3 17:00 PENICILLINS; jd3 17:00 Percodan; jd3 17:00 red wasp venom; jd3 17:00 sansert; jd3 17:00 sutritex; jd3 - Home Meds: 17:00 amitriptyline 50 mg Oral tab 1 tab once daily [Active]; atorvastatin 80 mg Oral tab 1 jd3 tab once daily [Active]; Dexilant 60 mg Oral CpDB 1 cap once daily [Active]; Lyrica Oral [Active]; oxybutynin chloride 5 mg Oral tr24 1 tab once daily [Active]; topiramate 100 mg Oral CSpX 1 cap once daily [Active]; hydralazine 25 mg Oral tab take if B/P is greater than or equal to 160 BID [Active]; - PMHx: 17:00 heart blockage; jd3 - PSHx: 17:00 Appendectomy; Tonsillectomy; Hysterectomy; Mastectomy RAINA; jd3 - Immunization history:: Adult Immunizations unknown. - Social history:: Smoking status: Patient/guardian denies using tobacco, but has a distant history of tobacco abuse. Screenin:50 Abuse screen: Denies threats or abuse. Denies injuries from another. Nutritional zb screening: No deficits noted. Tuberculosis screening: No symptoms or risk factors identified. Fall Risk Fall in past 12 months (25 points). No secondary diagnosis (0 pts). IV access (20 points). Ambulatory Aid- None/Bed Rest/Nurse Assist (0 pts). Gait- Normal/Bed Rest/Wheelchair (0 pts) Mental Status- Oriented to own ability (0 pts). Total Russell Fall Scale indicates Low Risk Score (25-44 pts). Fall prevention measures have been instituted. Side Rails Up X 2 Placed close to Nursing Station Frequent Obs/Assesments occuring Family Present and informed to notify staff if they need to leave bedside As available Patient and Family Educated on Fall Prevention Program and strategies. Assessment: 16:50 General: Appears in no apparent distress. uncomfortable, slender, Behavior is calm, zb cooperative, appropriate for age. Pain: Complains of pain in left ankle and thigh area. Neuro: Level of Consciousness is awake, alert, obeys commands, Oriented to person, place, time, situation. Neuro:. Cardiovascular: Capillary refill < 3 seconds in bilateral fingers Patient's skin is warm and dry. Pulses are all present. Edema is 1+ to left ankle, left foot, left toes, right ankle, right foot and right toes. Respiratory: Airway is patent Respiratory effort is even, unlabored, Respiratory pattern is regular, symmetrical, Breath sounds are diminished in right middle lobe, left lower lobe and right lower lobe. GI: No signs and/or symptoms were reported involving the gastrointestinal system. : Genitalia appear normal. EENT: No signs and/or symptoms were reported regarding the EENT system. Derm: Skin is intact, is thin, Skin is normal. Musculoskeletal: Circulation, motion, and sensation intact. Range of motion: limited in bilteral legs. 17:50 Reassessment: Patient appears in no apparent distress at this time. Patient and/or zb family updated on plan of care and expected duration. Pain level reassessed. Patient is alert, oriented x 3, equal unlabored respirations, skin warm/dry/pink. family at bedside. placed on urinal, bedding changed, and repositioned. 18:50 Reassessment: Patient appears in no apparent distress at this time. Patient and/or zb family updated on plan of care and expected duration. Pain level reassessed. Patient is alert, oriented x 3, equal unlabored respirations, skin warm/dry/pink. 20:06 Reassessment: Patient appears in no apparent distress at this time. Patient and/or jd3 family updated on plan of care and expected duration. Pain level reassessed. Patient is alert, oriented x 3, equal unlabored respirations, skin warm/dry/pink. 21:28 Reassessment: Patient appears in no apparent distress at this time. Patient and/or zb family updated on plan of care and expected duration. Pain level reassessed. Patient is alert, oriented x 3, equal unlabored respirations, skin warm/dry/pink. pt in bed. had a snack, drinking water at bedside. 23:15 Reassessment: Patient appears in no apparent distress at this time. Patient and/or zb family updated on plan of care and expected duration. Pain level reassessed. Patient is alert, oriented x 3, equal unlabored respirations, skin warm/dry/pink. charting continued in [facility]. Vital Signs: 17:01 BP 180 / 83; Pulse 88; Resp 19 S; Temp 98.4(O); Pulse Ox 87% on R/A; Weight 72.12 kg zb (R); Height 5 ft. 3 in. (160.02 cm) (R); Pain 0/10; 18:00 BP 175 / 87; Pulse 85; Resp 18; Pulse Ox 94% on 3 lpm NC; zb 19:00 BP 149 / 70; Pulse 81; Resp 18; Pulse Ox 99% on 3 lpm NC; zb 20:07 BP 155 / 65; Pulse 84; Resp 19 S; Pulse Ox 96% on 3 lpm NC; zb 21:03 BP 157 / 96; Pulse 86; Resp 17; Pulse Ox 100% on 3 lpm NC; zb 23:16 BP 152 / 82; Pulse 96; Resp 19 S; Pulse Ox 95% on 3 lpm NC; zb 17:01 Body Mass Index 28.16 (72.12 kg, 160.02 cm) zb ED Course: 16:47 Patient arrived in ED. jd3 16:47 Stefano Molina PA is PHCP. cp 16:47 Samuel Braun MD is Attending Physician. cp 16:52 Triage completed. jd3 16:55 Maria R Alexander RN is Primary Nurse. zb 17:03 Arm band placed on. jd3 17:03 Patient has correct armband on for positive identification. Fall risk band placed. zb Placed in gown. Bed in low position. Call light in reach. Side rails up X 1. Adult w/ patient. chain puller on. Pulse ox on. NIBP on. Door closed. Noise minimized. Warm blanket given. Head of bed. 17:48 XRAY Chest (1 view) In Process Unspecified. EDMS 18:26 US Extremity Venous W Compression Raina In Process Unspecified. EDMS 19:01 Missed attempt(s): 22 gauge in left antecubital area. Inserted saline lock: 22 gauge in zb left antecubital area, using aseptic technique. 20:07 Lab(s) recollected, by me. zb 21:08 Luther Newton PA is Hospitalizing Provider. cp 21:30 IV iv d/c due infiltration . zb 21:54 Niranjan Underwood is Hospitalizing Provider. rr5 21:55 Inserted saline lock: 22 gauge in right forearm, using aseptic technique. jd3 23:16 No provider procedures requiring assistance completed. Patient admitted, IV remains in zb place. Administered Medications: 20:50 Drug: TORadol - Ketorolac 15 mg Route: IVP; Site: left antecubital; zb 21:19 Follow up: Response: No adverse reaction; Pain is decreased zb 21:14 Drug: SOLU-Medrol 80 mg Route: IVP; Site: left antecubital; zb 22:10 Follow up: Response: No adverse reaction zb Outcome: 21:08 Decision to Hospitalize by Provider. cp 23:16 Admitted to ER Hold. Please see [facility] for further documentation. zb 23:16 Condition: stable 23:16 Instructed on the need for admit, Demonstrated understanding of instructions. 02/11 15:03 Patient left the ED. iw Signatures: Dispatcher [employer] Anh Johnson RN RN iw Stefano Molina PA PA cp Davies, Jonathon, RN RN jGalo Winters RN RN rr5 Brown, Zipporah, RN RN zlayla Corrections: (The following items were deleted from the chart) 02/10 16:53 16:47 Acuity: BA 3 jd3 jd3 21:28 18:00 BP 175 / 87; Pulse 85bpm; Resp 18bpm; Pulse Ox 94%; zb zb 21:28 19:00 BP 149 / 70; Pulse 81bpm; Resp 18bpm; Pulse Ox 99%; zb zb 21:28 20:07 BP 155 / 65; Pulse 84bpm; Resp 19bpm; Spontaneous; Pulse Ox 96% RA; jd3 zb 21:28 21:03 BP 157 / 96; Pulse 86bpm; Resp 17bpm; Pulse Ox 100% RA; zb zb 21:54 17:01 BP 180 / 83; Pulse 88bpm; Resp 19bpm; Spontaneous; Pulse Ox 97% RA; Temp 98.4F zb Oral; 72.12 kg Reported; Height 5 ft. 3 in. Reported; BMI: 28.1; Pain 0/10; jd3
--- NOTE | 2020-02-11 21:10 | EDPHYS ---
Physician Documentation [facility] Name: Mechelle Chapa Age: 84 yrs Sex: Female : 1935 Arrival Date: 02/11/2020 Time: 16:47 Bed 25 Private MD: ED Physician Samuel Braun HPI: 02/10 17:05 This 84 yrs old Female presents to ER via EMS with complaints of Shortness Of cp Breath. 17:05 The patient has shortness of breath at rest. Onset: The symptoms/episode began/occurred cp yesterday. Duration: The symptoms are continuous, and are steadily getting worse. Associated signs and symptoms: Pertinent negatives: chest pain, productive cough, diaphoresis, fever. Severity of symptoms: in the emergency department the symptoms have improved moderately. EMS reports patient's oxygen sats were 85% upon their arrival. Patient was placed on 4L supplemental oxygen. Historical: - Allergies: 17:00 Adhesives; jd3 17:00 Codeine; jd3 17:00 Demerol; jd3 17:00 gnats; jd3 17:00 Levaquin; jd3 17:00 Kenalog; jd3 17:00 Hydrocodone-Acetaminophen; jd3 17:00 Orabase (benzocaine); jd3 17:00 PENICILLINS; jd3 17:00 Percodan; jd3 17:00 red wasp venom; jd3 17:00 sansert; jd3 17:00 sutritex; jd3 - Home Meds: 17:00 amitriptyline 50 mg Oral tab 1 tab once daily [Active]; atorvastatin 80 mg Oral tab 1 jd3 tab once daily [Active]; Dexilant 60 mg Oral CpDB 1 cap once daily [Active]; Lyrica Oral [Active]; oxybutynin chloride 5 mg Oral tr24 1 tab once daily [Active]; topiramate 100 mg Oral CSpX 1 cap once daily [Active]; hydralazine 25 mg Oral tab take if B/P is greater than or equal to 160 BID [Active]; - PMHx: 17:00 heart blockage; jd3 - PSHx: 17:00 Appendectomy; Tonsillectomy; Hysterectomy; Mastectomy RAINA; jd3 - Immunization history:: Adult Immunizations unknown. - Social history:: Smoking status: Patient/guardian denies using tobacco, but has a distant history of tobacco abuse. ROS: 17:10 Constitutional: Negative for body aches, chills, fever, poor PO intake. cp 17:10 Eyes: Negative for injury, pain, redness, and discharge. cp 17:10 ENT: Negative for ear pain, sore throat, difficulty swallowing, difficulty handling secretions. 17:10 Cardiovascular: Positive for edema, Negative for chest pain, palpitations. 17:10 Respiratory: Positive for cough, with no reported sputum, shortness of breath, at rest. 17:10 Abdomen/GI: Negative for abdominal pain, nausea, vomiting, and diarrhea. 17:10 Skin: Negative for rash. 17:10 Neuro: Negative for altered mental status, dizziness, headache, syncope, weakness. 17:10 All other systems are negative. Exam: 17:15 Constitutional: The patient appears in no acute distress, alert, awake, cp non-diaphoretic, non-toxic, well developed, well nourished. 17:15 Head/Face: Normocephalic, atraumatic. cp 17:15 Eyes: Periorbital structures: appear normal, Conjunctiva: normal, no exudate, no injection, Sclera: no appreciated abnormality, Lids and lashes: appear normal, bilaterally. 17:15 ENT: External ear(s): are unremarkable, Nose: is normal, Mouth: Lips: moist, Oral mucosa: moist, Posterior pharynx: Airway: no evidence of obstruction, patent. 17:15 Neck: ROM/movement: is normal, is supple, no meningismus, no nuchal rigidity. 17:15 Chest/axilla: Inspection: normal, Palpation: is normal, no crepitus, no tenderness. 17:15 Cardiovascular: Rate: normal, Rhythm: regular, JVD: is not appreciated. 17:15 Respiratory: the patient does not display signs of respiratory distress, Respirations: labored breathing, is not present, intercostal retractions, are absent, Breath sounds: decreased breath sounds, that are moderate, diffuse, stridor, is not appreciated, wheezing: is not appreciated. 17:15 Abdomen/GI: Inspection: abdomen appears normal, Palpation: abdomen is soft and non-tender, in all quadrants. 17:15 Back: pain, is absent, ROM is normal. 17:15 Skin: no rash present. 17:15 Neuro: Orientation: to person, place \T\ time. Mentation: able to follow commands, slow to respond. 18:37 ECG was reviewed by the Attending Physician. Vital Signs: 17:01 BP 180 / 83; Pulse 88; Resp 19 S; Temp 98.4(O); Pulse Ox 87% on R/A; Weight 72.12 kg zb (R); Height 5 ft. 3 in. (160.02 cm) (R); Pain 0/10; 18:00 BP 175 / 87; Pulse 85; Resp 18; Pulse Ox 94% on 3 lpm NC; zb 19:00 BP 149 / 70; Pulse 81; Resp 18; Pulse Ox 99% on 3 lpm NC; zb 20:07 BP 155 / 65; Pulse 84; Resp 19 S; Pulse Ox 96% on 3 lpm NC; zb 21:03 BP 157 / 96; Pulse 86; Resp 17; Pulse Ox 100% on 3 lpm NC; zb 23:16 BP 152 / 82; Pulse 96; Resp 19 S; Pulse Ox 95% on 3 lpm NC; zb 17:01 Body Mass Index 28.16 (72.12 kg, 160.02 cm) zb MDM: 16:57 Patient medically screened. 17:15 Differential diagnosis: CHF exacerbation, Chronic Obstructive Pulmonary Disease cp pneumonia, pulmonary edema, Pulmonary Embolism Unstable Angina. 21:05 Data reviewed: vital signs, nurses notes, lab test result(s), EKG, radiologic studies, cp plain films, and as a result, I will admit patient. 21:05 Physician consultation: Luther PASTRANA was contacted at 21:05, regarding admission, to the telemetry unit. patient's condition, and will see patient in ED, shortly. 02/10 16:58 Order name: Influenza Screen (a \T\ B); Complete Time: 20:23 02/10 20:23 Interpretation: Reviewed. 02/10 16:58 Order name: COVID-19 02/10 16:58 Order name: Basic Metabolic Panel; Complete Time: 20:49 02/10 20:49 Interpretation: Normal except: CL 108; GFR 84. 02/10 16:58 Order name: CBC with Diff; Complete Time: 22:05 02/10 20:50 Interpretation: Normal except: RBC 5.21; HGB 15.1; HCT 46.1; PLT 120; MN% 18.3. cp 12/ 16:58 Order name: LFT's; Complete Time: 20:49 cp 12/03 16:58 Order name: Magnesium; Complete Time: 20:49 cp 12/03 16:58 Order name: NT PRO-BNP; Complete Time: 20:49 cp / 16:58 Order name: PT-INR; Complete Time: 20:49 cp 12/ 16:58 Order name: Troponin (emerg Dept Use Only); Complete Time: 20:49 cp / 20:49 Interpretation: Reviewed. cp 02/10 20:35 Order name: Manual Differential; Complete Time: 22:05 EDMS 02/10 23:28 Order name: SARS-COV-2 RT PCR EDMS 02/11 06:20 Order name: Basic Metabolic Panel EDMS 02/11 06:20 Order name: NT PRO-BNP EDMS 02/11 06:26 Order name: CBC with Automated Diff EDMS 02/10 16:58 Order name: XRAY Chest (1 view); Complete Time: 18:39 cp 02/10 18:43 Interpretation: Report reviewed. cp 12 16:58 Order name: EKG; Complete Time: 16:59 cp 12/03 16:58 Order name: Cardiac monitoring; Complete Time: 19:06 cp 12/03 16:58 Order name: EKG - Nurse/Tech; Complete Time: 19:06 cp /03 16:58 Order name: IV Saline Lock; Complete Time: 19:06 cp /03 16:58 Order name: Labs collected and sent; Complete Time: 20:03 cp / 16:58 Order name: O2 Per Protocol; Complete Time: 17:05 cp 02/10 16:58 Order name: O2 Sat Monitoring; Complete Time: 17:05 cp 03 16:58 Order name: US Extremity Venous W Compression Raina; Complete Time: 18:39 cp 02/10 18:43 Interpretation: Report reviewed. cp / 20:53 Order name: CT Chest For PE Angio cp 02/10 22:13 Order name: CONS Physician Consult EDMS 02/11 12:45 Order name: ABG Arterial Blood Gas EDMS EC:37 Rate is 81 beats/min. Rhythm is regular. [place] interval is normal. QRS interval is cp prolonged at 144 msec. QT interval is normal. T waves are Inverted in leads I, aVL. Interpreted by me. Reviewed by me. Administered Medications: 20:50 Drug: TORadol - Ketorolac 15 mg Route: IVP; Site: left antecubital; zb 21:19 Follow up: Response: No adverse reaction; Pain is decreased zb 21:14 Drug: SOLU-Medrol 80 mg Route: IVP; Site: left antecubital; zb 22:10 Follow up: Response: No adverse reaction zb Disposition: 02/12 08:32 Co-signature as Attending Physician, Samuel Braun MD I agree with the assessment and kdr plan of care. Disposition: 02/11/20 21:08 Hospitalization ordered by Niranjan Underwood for Observation. Preliminary diagnosis are Chronic obstructive pulmonary disease with (acute) exacerbation, Hypoxemia. - Bed requested for [facility] ER HOLD. - Status is Observation. iw - Condition is Stable. - Problem is an acute exacerbation. - Symptoms have improved. Signatures: Dispatcher [employer] EDMS Amparo Christy RN RN mw Rittger, Kevin, MD MD [facility] Anh Valencia RN RN iw Luther Newton PA PA jr8 Stefano Molina PA PA cp Davies, Jonathon, RN RN jGalo Winters RN RN rr5 Maria R Alexander RN RN zb Corrections: (The following items were deleted from the chart) 02/10 21:54 21:08 Hospitalization Ordered by Luther PASTRANA for Inpatient Admission. Preliminary rr5 diagnosis is Chronic obstructive pulmonary disease with (acute) exacerbation; Hypoxemia. Bed requested for Telemetry/MedSurg (Inpatient). Status is Inpatient Admission. Condition is Stable. Problem is an acute exacerbation. Symptoms have improved. cp 21:59 21:54 02/11/2020 21:08 Hospitalization Ordered by Niranjan Underwood for Observation. mw Preliminary diagnosis is Chronic obstructive pulmonary disease with (acute) exacerbation; Hypoxemia. Bed requested for Telemetry/MedSurg (observation). Status is Observation. Condition is Stable. Problem is an acute exacerbation. Symptoms have improved. rr5 02/11 15:03 12 21:59 02/11/2020 21:08 Hospitalization Ordered by Niranjan Underwood for Observation. iw Preliminary diagnosis is Chronic obstructive pulmonary disease with (acute) exacerbation; Hypoxemia. Bed requested for [facility] ER HOLD. Status is Observation. Condition is Stable. Problem is an acute exacerbation. Symptoms have improved. mw
[2020-02-11] MEDS ORDERED: METHYLPREDNISOLONE 40 MG INJ ONE (21:22)
[2020-02-11 21:28] LABS: Blood Morphology Comment NOT SEEN (NOT SEEN); Platelet Estimate DECR
[2020-02-11] MEDS ORDERED: ONDANSETRON 4 MG/2 ML VIAL IV PRN (23:30)
[2020-02-11] MEDS ORDERED: ALBUTEROL 2.5 MG/3 ML NEB SOL NEB PRN (23:30)
[2020-02-11] MEDS ORDERED: HYDRALAZINE HCL 20 MG/ML VIAL IV PRN (23:30)
[2020-02-11] MEDS ORDERED: ACETAMINOPHEN 500 MG TAB PO PRN (23:30)
[2020-02-11] MEDS ORDERED: IPRATROPIUM BROM 0.5MG/2.5ML NEB PRN (23:30)
[2020-02-11] MEDS: HYDROMORPHONE HCL 1 MG/ML INJ IV ONE ×2 (23:51)
[2020-02-12] MEDS ORDERED: HYDROMORPHONE HCL 1 MG/ML INJ ONE (00:07)
[2020-02-12] MEDS: METHYLPREDNISOLONE 40 MG INJ IV SCH ×2 (01:32→09:46)
[2020-02-12] MEDS ORDERED: HYDRALAZINE HCL 20 MG/ML VIAL ONE (01:35)
[2020-02-12] MEDS ORDERED: METHYLPREDNISOLONE 40 MG INJ ONE ×2 (01:36→09:59)
--- NOTE | 2020-02-12 02:29 | P.HP ---
Certification for Inpatient Patient admitted to: Observation With expected LOS: <2 Midnights Patient will require the following post-hospital care: None Practitioner: I am a practitioner with admitting privileges, knowledge of patient current condition, hospital course, and medical plan of care. Services: Services provided to patient in accordance with Admission requirements found in Title 42 Section 412.3 of the Code of Federal Regulations <Gatito Newton - Last Filed: 02/12/20 02:24> Patient History Date of Service: 02/12/20 Primary Care Provider: Johanna Carson Reason for admission: COPD Exacerbation, Hypoxia History of Present Illness: This is an 84-year-old female with a history of coronary artery disease, hypertension, hyperlipidemia, chronic obstructive pulmonary disease that was brought to the emergency room after having increased shortness of breath that started about 24 hr ago. Patient stated that it markedly increased throughout the day to the point were she had to call EMS to be brought in. EMS on scene her emergency room staff stated that her room air oxygen saturation was 85% and was having difficulty breathing. Patient noted to be hypoxic upon arrival as well. Patient was given steroids and was put on oxygen and improved drastically. Patient now resting comfortably in the emergency room. Patient stated that she currently is on hospice for end-stage chronic obstructive pulmonary disease. Normally does not require oxygen at home but is immobile and does take other medications for her pulmonary disease process. Patient denies fevers or any other new complaints I could of caused exacerbation of her COPD. Medicine was consulted at that time for further workup and admission. Patient's labs were without acute finding. DVT ultrasound, chest x-ray, CT PE without acute findings as well. - Past Medical/Surgical History Diabetic: No -: Osteoporosis -: Heart Block -: Fractured R hip -: Fibrocystic disease -: Julio César Ankle broken -: Arthritis R hand -: Appendectomy -: Julio César Mastectomy -: R Hip sx -: Hammer Toe sx - Family History Mother -: Diabetes Father -: Lung disease, Cancer Notes: Lung Cancer - Social History Smoking Status: Former smoker Smoking therapy provided: No Alcohol use: No CD- Drugs: No Caffeine use: Yes Place of Residence: Home <Gatito Newton - Last Filed: 02/12/20 02:24> Date of Service: 02/12/20 <eunice whittington - Last Filed: 02/12/20 14:20> Allergies adhesive tape Allergy (Verified 05/19/19 12:03) pulls skin off aspirin [From Percodan] Allergy (Verified 05/19/19 12:03) Hives/Rash, facial swelling buprenorphine [From Subutex] Allergy (Verified 05/19/19 12:03) SOB, altered memory and balance codeine Allergy (Verified 05/19/19 12:03) Nausea/Vomiting hydrocodone Allergy (Verified 05/19/19 12:03) Nausea/Vomiting levofloxacin [From Levaquin] Allergy (Verified 05/19/19 12:03) Hives/Rash meperidine [From Demerol] Allergy (Verified 05/19/19 12:03) unconsciousness oxycodone [From Percodan] Allergy (Verified 05/19/19 12:03) Hives/Rash, facial swelling Penicillins Allergy (Verified 05/19/19 12:03) Anaphylaxis triamcinolone [From Kenalog] Allergy (Verified 05/19/19 12:03) thrush Home Medications: Atorvastatin Calcium [Lipitor] 80 mg PO BEDTIME 05/19/19 Calcium Carbonate [Calcium] 600 mg PO DAILY 05/19/19 Cholecalciferol (Vitamin D3) [Vitamin D3] 2,000 unit PO DAILY 05/19/19 Cyanocobalamin (Vitamin B-12) [Vitamin B12] 2,500 mcg PO DAILY 05/19/19 Dexlansoprazole [Dexilant] 60 mg PO DAILY 05/19/19 Fluticasone [Flonase 50MCG Nasal [place]*] 2 sprays NS BID PRN 05/19/19 Hydralazine [Apresoline*] 25 mg PO BID PRN 05/19/19 Potassium Gluconate [Potassium] 99 mg PO DAILY 05/19/19 Pramipexole [Mirapex*] 0.25 mg PO BID 05/19/19 Pregabalin [Lyrica*] 75 mg PO BID 05/19/19 Primidone [Mysoline *] 250 mg PO BEDTIME 05/19/19 Rizatriptan Benzoate [Rizatriptan] 10 mg PO DAILY 05/19/19 Topiramate [Topamax*] 100 mg PO BEDTIME 05/19/19 Albuterol Inhaler [Ventolin Inhaler*] 1 puff IH Q6HP PRN 02/12/20 Albuterol Neb [Proventil 0.083% Neb Soln] 2.5 mg NEB Q6H PRN #120 amp 02/12/20 Amitriptyline [Elavil*] 50 mg PO BEDTIME 02/12/20 Fesoterodine Fumarate [Toviaz] 4 mg PO DAILY 02/12/20 Fluticasone/Umeclidin/Vilanter [Trelegy Ellipta 100-62.5-25] 1 puff IH DAILY 02/12/20 Hydromorphone HCl [Dilaudid] 2 mg PO BEDTIME 02/12/20 Ipratropium Neb [Atrovent*] 0.5 mg NEB Q6H PRN #120 amp 02/12/20 Losartan Potassium [Cozaar] 100 mg PO BEDTIME 02/12/20 Review of Systems General: Unremarkable Eyes: Unremarkable ENT: Unremarkable Respiratory: Shortness of Breath Cardiovascular: Unremarkable Gastrointestinal: Unremarkable Musculoskeletal: Unremarkable Integumentary: Unremarkable Neurological: Unremarkable Lymphatics: Unremarkable <Gatito Newton - Last Filed: 02/12/20 02:24> Physical Examination - Vital Signs Temperature: 98.4 F Blood Pressure: 180/83 Pulse: 85 Respirations: 16 Pulse Ox (%): 95 (Nasal cannula 3 liters/minute) - Physical Exam General: Alert, In no apparent distress, Oriented x3, Cooperative HEENT: PERRLA, Mucous membr. moist/pink, EOMI Neck: Supple, 2+ carotid pulse no bruit, JVD not distended, No Thyromegaly Respiratory: Expiratory wheezes Cardiovascular: No edema, Normal pulses, Regular rate/rhythm, Normal S1 S2, No gallops, No rubs, No murmurs Capillary refill: <2 Seconds Gastrointestinal: Normal bowel sounds, Soft and benign, Non-distended, No ascites, No tenderness, No masses, No rebound, No guarding Musculoskeletal: No clubbing, No swelling, No contractures, No erythema, No tenderness, No warmth Integumentary: No rashes, No breakdown, No significant lesion, No tenderness/swelling, No erythema, No warmth, No cyanosis Neurological: Normal speech, Normal strength at 5/5 x4 extr, Normal tone, Sen sation intact, Normal reflexes 2+, Normal affect Lymphatics: No axilla or inguinal lymphadenopathy - Studies Laboratory Data (last 24 hrs) 02/11/20 20:02: PT 12.5, INR 1.06 02/11/20 20:02: WBC 4.7, Hgb 15.1 H, Hct 46.1 H, Plt Count 120 L 02/11/20 20:02: Sodium 142, Potassium 3.6, BUN 8, Creatinine 0.67, Glucose 99, Magnesium 2.1, Total Bilirubin 0.3, AST 23, ALT 22, Alkaline Phosphatase 86 Microbiology Data (last 24 hrs): 02/11/20 18:29 Nasopharnyx Influenza Type A Antigen Screen - Final 02/11/20 18:29 Nasopharnyx Influenza Type B Antigen Screen - Final <Gatito Newton - Last Filed: 02/12/20 02:24> - Studies Laboratory Data (last 24 hrs) 02/11/20 20:02: PT 12.5, INR 1.06 02/11/20 20:02: WBC 4.7, Hgb 15.1 H, Hct 46.1 H, Plt Count 120 L 02/11/20 20:02: Sodium 142, Potassium 3.6, BUN 8, Creatinine 0.67, Glucose 99, Magnesium 2.1, Total Bilirubin 0.3, AST 23, ALT 22, Alkaline Phosphatase 86 Microbiology Data (last 24 hrs): 02/11/20 18:29 Nasopharnyx Influenza Type A Antigen Screen - Final 02/11/20 18:29 Nasopharnyx Influenza Type B Antigen Screen - Final <eunice whittington - Last Filed: 02/12/20 14:20> Assessment and Plan - Problems (Diagnosis) (1) COPD (chronic obstructive pulmonary disease) Current Visit: Yes Status: Acute Plan: Patient started on nebulizer treatments and will be put on steroids as well. Patient will also continue on nasal cannula for the time being. Will monitor patient over the next 24 hr. If she improves drastically should be able to go home. We also consulted pulmonology for further or valuation an adjustment medications if needed. Also to evaluate if patient is needing home oxygen at this time. Qualifiers: COPD type: COPD with acute exacerbation Qualified Code(s): J44.1 - Chronic obstructive pulmonary disease with (acute) exacerbation (2) Hypoxia Current Visit: Yes Status: Acute Plan: Patient be monitored with pulse oximetry has been given and started on steroids and breathing treatments. Hypoxia was secondary to her chronic obstructive pulmonary disease process. (3) HTN (hypertension) Current Visit: No Status: Chronic Plan: Patient will be given blood pressure medicines as needed for systolic greater than 160 or diastolic greater than 110. Qualifiers: Hypertension type: essential hypertension Qualified Code(s): I10 - Essential (primary) hypertension Discharge Plan: Home Plan to discharge in: 24 Hours - Advance Directives Does patient have a Living Will: No Does patient have a Durable POA for Healthcare: No - Code Status/Comfort Care Code Status Assessed: No Critical Care: No Time Spent Managing Pts Care (In Minutes): 70 <Gatito Newton - Last Filed: 02/12/20 02:24> - Problems (Diagnosis) (1) Acute respiratory failure with hypoxia Current Visit: Yes Status: Acute (2) Shortness of breath Current Visit: Yes Status: Acute (3) Solitary pulmonary nodule Current Visit: Yes Status: Acute (4) HTN (hypertension) Current Visit: No Status: Chronic Qualifiers: Hypertension type: essential hypertension Qualified Code(s): I10 - Essential (primary) hypertension Physician Review: Patient Assessed, Agree with Above Assessment and Plan Physician Review Additional Text: Hypoxia Hypertension Bedridden. Plan: I agree with IV steroid, scheduled nebs. Supplemental oxygen. Pulmonary consult. <eunice whittington - Last Filed: 02/12/20 14:20>
[2020-02-12] MEDS ORDERED: HYDROMORPHONE HCL 2 MG/ML inj IV ONE (03:32)
[2020-02-12 05:31] VITALS: BMI 28.1
[2020-02-12 06:07] LABS: Absolute Lymphocytes (CBC) 0.6 K/uL (0.7-4.9); Basophils % 0.1 % (0-1.3); Lymphocytes % 10.9 % (15.3-44.8); MPV 10.4 fL (7.6-11.3); RBC Red Blood Cell Count 4.76 M/uL (3.86-4.86)
[2020-02-12 06:19] LABS: BUN Blood Urea Nitrogen 11 mg/dL (7-18); Bicarbonate 27 mmol/L (21-32); Glucose Level 144 mg/dL (74-106); NT PRO-BNP 1000 pg/mL (<450); Potassium 3.8 mmol/L (3.5-5.1); Sodium Level 142 mmol/L (136-145)
[2020-02-12] MEDS ORDERED: PNEUMOCOCCAL VACCINE 0.5 ML IMVAC ONE ×3 (09:00→14:25)
[2020-02-12] MEDS ORDERED: INFLUENZA VACCINE (for 3y+) 0.5 ML DOSE IMVAC ONE ×2 (09:00→14:16)
[2020-02-12] MEDS ORDERED: ASPIRIN EC 81 MG TAB PO SCH (09:00)
[2020-02-12 09:18] VITALS: O2SAT 97
[2020-02-12] MEDS ORDERED: ASPIRIN EC 81 MG TAB PO ONE (09:59)
[2020-02-12] MEDS ORDERED: ONDANSETRON 4 MG/2 ML VIAL ONE (10:02)
--- NOTE | 2020-02-12 11:25 | P.CNS ---
Date of Consult: 02/12/20 Reason for Consult: Hypoxemia Primary Care Provider: Johanna Carson Chief Complaint: Hypoxemia History of Present Illness: Patient is 84 years of age I have been following her as a telephone visit complaining of some shortness of breath she has had normal pulmonary function testing never smoked is doing well with trilogy apparently woke up in the middle 9 became short of breath her pulse oximeter had declined to below 85 came here to the emergency room she is doing fine saturation is satisfactory CT scan no pulmonary emboli minimal atelectasis at the right base eyes any fever chills or cough patient takes very shallow breaths. Feeling fine back at her baseline requesting oxygen Allergies adhesive tape Allergy (Verified 05/19/19 12:03) pulls skin off aspirin [From Percodan] Allergy (Verified 05/19/19 12:03) Hives/Rash, facial swelling buprenorphine [From Subutex] Allergy (Verified 05/19/19 12:03) SOB, altered memory and balance codeine Allergy (Verified 05/19/19 12:03) Nausea/Vomiting hydrocodone Allergy (Verified 05/19/19 12:03) Nausea/Vomiting levofloxacin [From Levaquin] Allergy (Verified 05/19/19 12:03) Hives/Rash meperidine [From Demerol] Allergy (Verified 05/19/19 12:03) unconsciousness oxycodone [From Percodan] Allergy (Verified 05/19/19 12:03) Hives/Rash, facial swelling Penicillins Allergy (Verified 05/19/19 12:03) Anaphylaxis triamcinolone [From Kenalog] Allergy (Verified 05/19/19 12:03) thrush Home Medications: Atorvastatin Calcium [Lipitor] 80 mg PO BEDTIME 05/19/19 Calcium Carbonate [Calcium] 600 mg PO DAILY 05/19/19 Cholecalciferol (Vitamin D3) [Vitamin D3] 2,000 unit PO DAILY 05/19/19 Cyanocobalamin (Vitamin B-12) [Vitamin B12] 2,500 mcg PO DAILY 05/19/19 Dexlansoprazole [Dexilant] 60 mg PO DAILY 05/19/19 Fluticasone [Flonase 50MCG Nasal [place]*] 2 sprays NS BID PRN 05/19/19 Hydralazine [Apresoline*] 25 mg PO BID PRN 05/19/19 Potassium Gluconate [Potassium] 99 mg PO DAILY 05/19/19 Pramipexole [Mirapex*] 0.25 mg PO BID 05/19/19 Pregabalin [Lyrica*] 75 mg PO BID 05/19/19 Primidone [Mysoline *] 250 mg PO BEDTIME 05/19/19 Rizatriptan Benzoate [Rizatriptan] 10 mg PO DAILY 05/19/19 Topiramate [Topamax*] 100 mg PO BEDTIME 05/19/19 Albuterol Inhaler [Ventolin Inhaler*] 1 puff IH Q6HP PRN 02/12/20 Amitriptyline [Elavil*] 50 mg PO BEDTIME 02/12/20 Fesoterodine Fumarate [Toviaz] 4 mg PO DAILY 02/12/20 Fluticasone/Umeclidin/Vilanter [Trelegy Ellipta 100-62.5-25] 1 puff IH DAILY 02/12/20 Hydromorphone HCl [Dilaudid] 2 mg PO BEDTIME 02/12/20 Losartan Potassium [Cozaar] 100 mg PO BEDTIME 02/12/20 - Past Medical/Surgical History Diabetic: No -: Osteoporosis -: Heart Block -: Fractured R hip -: Fibrocystic disease -: Julio César Ankle broken -: Arthritis R hand -: migraines -: barrets esophagus -: Appendectomy -: Julio César Mastectomy -: R Hip sx -: Hammer Toe sx -: hysterectomy - Family History Mother Medical History: Diabetes Father Medical History: Lung disease, Cancer Notes: Lung Cancer - Social History Smoking Status: Unknown if ever smoked Alcohol use: No CD- Drugs: No Caffeine use: Yes Place of Residence: Home Review of Systems 10-point ROS is otherwise unremarkable General: Weakness Physical Examination Temp Pulse Resp BP Pulse Ox 97.7 F 87 18 126/81 100 02/12/20 10:02 02/12/20 10:02 02/12/20 10:02 02/12/20 10:02 02/12/20 10:02 General: Alert, In no apparent distress, Oriented x3, Other (Little expressive dysphagia) Respiratory: Clear to auscultation bilaterally Cardiovascular: No edema, Regular rate/rhythm Gastrointestinal: Normal bowel sounds, Soft and benign Laboratory Data (last 24 hrs) 02/11/20 20:02: PT 12.5, INR 1.06 02/11/20 20:02: WBC 4.7, Hgb 15.1 H, Hct 46.1 H, Plt Count 120 L 02/11/20 20:02: Sodium 142, Potassium 3.6, BUN 8, Creatinine 0.67, Glucose 99, Magnesium 2.1, Total Bilirubin 0.3, AST 23, ALT 22, Alkaline Phosphatase 86 - Problems (1) Shortness of breath Current Visit: Yes Status: Acute Plan: Patient is 84 years of age admitted with shortness of breath low pulse oximet [place] CT scan no pulmonary emboli no evidence of sepsis I have ordered arterial blood gases may benefit from a prescription of nebulizer with albuterol and an oxygen tank as needed continue using a bronchodilators at home in addition patient has a right upper lobe nodule the well defined most likely a granuloma she is at high risk for any procedures (2) Sleep apnea Current Visit: Yes Status: Acute Plan: Patient complains of snoring excessive daytime somnolence very difficult for her to have a sleep study done will advice patient to birch is a CPAP machine at home (3) Solitary pulmonary nodule Current Visit: Yes Status: Acute Plan: Patient has assaulted pulmonary nodule in the left upper lobe high risk very well defined low risk lesion does not smoke
[2020-02-12 12:44] LABS: Arterial Blood Carboxyhemoglob 1.3 % (0-1.5); Blood Gas Oxyhemoglobin 89.1 % (94-97)
[2020-02-12 13:38] VITALS: BP 130/64; TEMP 98.2
--- NOTE | 2020-02-12 13:39 | EKG ---
Test Date: 2020-02-11 Test Time: 18:32:21 [employer] Principal: CIARA MEASUREMENT RESULTS: Intervals: Rate: 81 KS: 150 QRSD: 144 QT: 424 QTc: 492 Neb[place]: P: 28 KS: 150 QRS: -20 T: 122 INTERPRETIVE STATEMENTS: Normal sinus rhythm Left bundle branch block Abnormal ECG Compared to ECG 05/19/2019 04:10:51 No significant changes Electronically Signed On 02-12-20 13:37:06 [employer] by Edenilson Pradhan
--- NOTE | 2020-02-12 14:04 | P.DS ---
Admission Date: 02/11/20 Discharge Date: 02/12/20 Primary Care Provider: Johanna Carson Disposition: DC HOME/HOME HEALTH CARE Discharge Condition: FAIR Reason for Admission: Hypoxemia - Problems (1) Acute respiratory failure with hypoxia Current Visit: Yes Status: Acute (2) Shortness of breath Current Visit: Yes Status: Acute (3) Solitary pulmonary nodule Current Visit: Yes Status: Acute (4) HTN (hypertension) Current Visit: No Status: Chronic Qualifiers: Hypertension type: essential hypertension Qualified Code(s): I10 - Essential (primary) hypertension Brief History of Present Illness: 84-year-old woman with a history of hypertension, chronic disease and hyper lipidemia, bedridden was brought to the emergency department due to progressive shortness of breath of 1 day duration. Patient is reported to be hypoxic with oxygen saturation of 85% on room air. Treatment for COPD exacerbation was initiated in the ED with IV steroid and nebulizers. Patient was hospitalized for further management. Hospital Course: She was treated for COPD exacerbation with scheduled nebs and IV steroid. She clinically improved with treatment. Patient was seen and evaluated by pulmonary - Dr. Bar. Arterial blood gas was done which demonstrated PO2 of 65% on room air. Patient is immobile and does not qualify for home oxygen. Dr. Bar recommended nebulizer treatment at home. Patient is considered clinically stable. She is discharged with a prescription for nebulizers per pulmonary recommendation. Vital Signs/Physical Exam: Temp Pulse Resp BP Pulse Ox 98.2 F 94 H 18 130/64 90 L 02/12/20 12:00 02/12/20 12:00 02/12/20 12:00 02/12/20 12:00 02/12/20 12:00 General: In no apparent distress, Other (Awake) HEENT: Mucous membr. moist/pink Neck: Supple, JVD not distended Respiratory: Clear to auscultation bilaterally, Normal air movement Cardiovascular: No edema, Regular rate/rhythm, Normal S1 S2 Gastrointestinal: Normal bowel sounds, Soft and benign Musculoskeletal: No swelling, No tenderness Integumentary: No rashes, No erythema Neurological: Other (Nonfocal) Laboratory Data at Discharge: WBC 5.8 K/uL (4.3-10.9) D 02/12/20 05:12 Hgb 14.0 g/dL (12.0-15.0) 02/12/20 05:12 Hct 42.0 % (36.0-45.0) 02/12/20 05:12 Plt Count 124 K/uL (152-406) L 02/12/20 05:12 PT 12.5 SECONDS (9.5-12.5) 02/11/20 20:02 INR 1.06 02/11/20 20:02 Sodium 142 mmol/L (136-145) 02/12/20 05:12 Potassium 3.8 mmol/L (3.5-5.1) 02/12/20 05:12 BUN 11 mg/dL (7-18) 02/12/20 05:12 Creatinine 0.59 mg/dL (0.55-1.3) 02/12/20 05:12 Glucose 144 mg/dL (74-106) H 02/12/20 05:12 Magnesium 2.1 mg/dL (1.8-2.4) 02/11/20 20:02 Total Bilirubin 0.3 mg/dL (0.2-1.0) 02/11/20 20:02 AST 23 U/L (15-37) 02/11/20 20:02 ALT 22 U/L (12-78) 02/11/20 20:02 Alkaline Phosphatase 86 U/L (45-117) 02/11/20 20:02 Home Medications: Atorvastatin Calcium [Lipitor] 80 mg PO BEDTIME 05/19/19 Calcium Carbonate [Calcium] 600 mg PO DAILY 05/19/19 Cholecalciferol (Vitamin D3) [Vitamin D3] 2,000 unit PO DAILY 05/19/19 Cyanocobalamin (Vitamin B-12) [Vitamin B12] 2,500 mcg PO DAILY 05/19/19 Dexlansoprazole [Dexilant] 60 mg PO DAILY 05/19/19 Fluticasone [Flonase 50MCG Nasal [place]*] 2 sprays NS BID PRN 05/19/19 Hydralazine [Apresoline*] 25 mg PO BID PRN 05/19/19 Potassium Gluconate [Potassium] 99 mg PO DAILY 05/19/19 Pramipexole [Mirapex*] 0.25 mg PO BID 05/19/19 Pregabalin [Lyrica*] 75 mg PO BID 05/19/19 Primidone [Mysoline *] 250 mg PO BEDTIME 05/19/19 Rizatriptan Benzoate [Rizatriptan] 10 mg PO DAILY 05/19/19 Topiramate [Topamax*] 100 mg PO BEDTIME 05/19/19 Albuterol Inhaler [Ventolin Inhaler*] 1 puff IH Q6HP PRN 02/12/20 Albuterol Neb [Proventil 0.083% Neb Soln] 2.5 mg NEB Q6H PRN #120 amp 02/12/20 Amitriptyline [Elavil*] 50 mg PO BEDTIME 02/12/20 Fesoterodine Fumarate [Toviaz] 4 mg PO DAILY 02/12/20 Fluticasone/Umeclidin/Vilanter [Trelegy Ellipta 100-62.5-25] 1 puff IH DAILY 02/12/20 Hydromorphone HCl [Dilaudid] 2 mg PO BEDTIME 02/12/20 Ipratropium Neb [Atrovent*] 0.5 mg NEB Q6H PRN #120 amp 02/12/20 Losartan Potassium [Cozaar] 100 mg PO BEDTIME 02/12/20 New Medications: Ipratropium Neb [Atrovent*] 0.5 mg NEB Q6H PRN #120 amp PRN Reason: Wheezing Albuterol Neb [Proventil 0.083% Neb Soln] 2.5 mg NEB Q6H PRN #120 amp PRN Reason: Wheezing Patient Discharge Instructions: I will fax in a prescription for a nebulizer and albuterol treatments the be use as needed to her pharmacy I will also fax and for some oxygen to [facility] patient patient will pay for all the above treatment will not qualify patient does not have COPD on pulmonary function testing Diet: AHA Activity: Fall precautions Followup: Av Bar MD [ACTIVE - CAN ADMIT] - 1-2 Weeks Leroy Carson DO [Primary Care Provider] - 1-2 Weeks
[2020-02-12] MEDS ORDERED: ENOXAPARIN 40 MG/0.4 ML SQ SCH (17:00)
--- NOTE | 2020-02-13 09:06 | RAD REPORT ---
EXAM DESCRIPTION: CT - Chest For Pe Angio - 02/12/2020 6:58 am CLINICAL HISTORY: The patient is 84 years old and is Female; SOB TECHNIQUE: Axial computed tomographic angiography images of the chest with intravenous contrast. S agittal and coronal reformatted images were created and reviewed. This CT exam was performed using one or more of the following dose reduction techniques: automated exposure control, adjustment of t he mA and/or kV according to patient size, and/or use of iterative reconstruction technique. MIP reconstructed images were created and reviewed. COMPARISON: No relevant prior studies available. FINDINGS: PULMONARY ARTERIES: There are no obvious filling defects identified within the pulmonary arteries to suggest pulmonary embolism. AORTA: Atherosclerosis of the aorta is present. No thoracic aortic aneurysm. LUNGS: Atelectasis with air bronchograms in the lower lobes is noted. A 0.8 cm right upper lobe p ulmonary nodule is present. Mild emphysematous changes of lungs is present. PLEURAL SPACE: Unremarkable. No significant effusion. No pneumothorax. HEART: Unremarkable. No cardiomegaly. No significant pericardial effusion. No evidence of R V dysfunction. MEDIASTINUM: Tracheobronchial tree is widely patent. BONES/JOINTS: No acute fracture. No dislocation. SOFT TISSUES: Bilateral breast implants are present. LYMPH NODES: Unremarkable. No enlarged lymph nodes. IMPRESSION: 1. No evidence of pulmonary embolism. 2. Findings suggestive of atelectasis within the lung bases. No pleural effusion. 3. Right upper lobe pulmonary nodule. 8 mm right solid pulmonary nodule within the upper lobe. Casey mmend a non-contrast Chest CT at 6-12 months, then another non-contrast Chest CT at 18-24 months. These guidelines do not apply to immunocompromised patients and patients with cancer. Follow up in pa tients with significant comorbidities as clinically warranted. For lung cancer screening, adhere to L yessy-RADS guidelines. Reference: Radiology. 2017; 284(1):228-43. Electronically signed by: Becca Valencia MD 02/11/2020 10:54 PM [employer] Due to temporary technical issues with the PACS/Fluency reporting system, reports are being signed by the in house radiologists without review as a courtesy to insure prompt reporting. The interpreting radiologist is fully responsible for the content of the report.
== END 2020-02-12 14:20 | disposition home health service (06) ==
LOC: ER 16:36 → ERHOLD 22:11
PROVIDERS: ADMIT Internal Medicine; ATTEND Internal Medicine
DX: J96.01 Acute respiratory failure with hypoxia (principal); J44.1 Chronic obstructive pulmonary disease with (acute) exacerbation; R91.1 Solitary pulmonary nodule; I10 Essential (primary) hypertension; E78.5 Hyperlipidemia, unspecified; Z74.01 Bed confinement status; Z20.828 Contact with and (suspected) exposure to other viral communicable diseases; R94.31 Abnormal electrocardiogram [ECG] [EKG]; M19.041 Primary osteoarthritis, right hand; K22.70 Barrett's esophagus without dysplasia; M81.0 Age-related osteoporosis without current pathological fracture; G47.30 Sleep apnea, unspecified; Z87.891 Personal history of nicotine dependence; Z23 Encounter for immunization
CPT/HCPCS: 93005; 85025 ×2; 80048 ×2; 36415; 83735; 85610; 80076; 84484; 83880 ×2; 87804 ×2; 71275; 71045; 90471 ×2; 93970; 90732 ×2; 82805; 94760; 96375; 96374; 99285; U0003; Q9967; J0360; Q2035; J1170 ×2; J2405; J2920 ×3; G0378 ×2